=== PATIENT | female | born 1965 | race Caucasian/White ===

== ENCOUNTER 2018-02-17 21:22 | Observation (INO) | payer OTHER ==
[2018-02-17 21:29] VITALS: BMI 27.6
[2018-02-17] MEDS ORDERED: ASPIRIN 325 MG TABLET PO ONE (22:28)
[2018-02-17] MEDS ORDERED: SODIUM CHLORIDE 500 ML IV STA (22:28)
--- NOTE | 2018-02-17 22:36 | PDOC ---
History of Present Illness - General History Source: Patient Exam Limitations: No Limitations <Candy House - Last Filed: 02/18/18 01:15> <Markos Rae - Last Filed: 02/18/18 02:04> - General Chief Complaint: Chest Pain Stated Complaint: CHEST PAIN Time Seen by Provider: 02/17/18 21:47 - History of Present Illness Initial Comments: This is a 52 YOM with h/o HLD and venous reflux in her legs (based on US from 2016) who p/w left-sided sharp chest pain worsening with deep breathing and radiating straight to her back and also down her left arm. The pain started yesterday early this morning at about 2 am, lasted about 45 minutes, and resolved with 325 of aspirin which the patient took. The pain recurred today just [employer] and has been persistent since that time, associated with SOB, headache , mild lightheadedness, and mild nausea. She has never had this pain before in her life. She notes recent increased swelling in both legs and ankles, with left worse than right, and mild left calf pain. She additionally notes about two weeks of intermittent rapid palpitations. She denies LOC, fever, chills, vomiting, diarrhea, constipation, abdominal pain, or other symptoms. (Candy House) Past History - Past Medical History Asthma: Yes CVA: No COPD: No DVT: No - Immunization History Immunization Up to Date: Yes - Suicide/Smoking/Psychosocial Hx Smoking History: Never smoked Have you smoked in the past 12 months: No Information on smoking cessation initiated: No Hx Alcohol Use: No Drug/Substance Use Hx: No <Candy House - Last Filed: 02/18/18 01:15> <Markos Rae - Last Filed: 02/18/18 02:04> - Past Medical History Allergies/Adverse Reactions: Allergies Allergy/AdvReac Type Severity Reaction Status Date / Time Penicillins Allergy Verified 02/17/18 21:26 Home Medications: Ambulatory Orders Cholecalciferol (Vitamin D3) [Vitamin D3 -] 400 unit PO DAILY 02/17/18 Ferrous Sulfate [Iron] 325 mg PO DAILY 02/17/18 Vitamin A 0 unit PO DAILY 02/17/18 Vitamin E 0 unit PO DAILY 02/17/18 Review of Systems - Review of Systems Able to Perform ROS?: Yes Constitutional: No: Chills, Fever, Unexplained wgt Loss HEENTM: No: Nose Congestion, Throat Pain Respiratory: Yes: Shortness of Breath. No: Cough Cardiac (ROS): Yes: Chest Pain, Edema, Lightheadedness, Palpitations. No: Syncope ABD/GI: Yes: Nausea. No: Constipated, Diarrhea, Vomiting : No: Burning, Dysuria Musculoskeletal: No: Back Pain, Neck Pain Integumentary: No: Bruising, Rash Neurological: No: Headache, Numbness, Tingling, Weakness Endocrine: No: Unexplained Weight Gain, Unexplained Weight Loss <House,Candy - Last Filed: 02/18/18 01:15> - Vital Signs Last Vital Signs Temp Pulse Resp BP Pulse Ox 98.3 F 88 18 123/71 97 02/17/18 21:27 02/17/18 21:27 02/17/18 21:27 02/17/18 21:27 02/17/18 21:27 Heart Score/ECG Review - History History: Moderately suspicious - Electrocardiogram EKG: Non specific repolarization disturbance - Age Age: 45-65 - Risk Factors Risk Factors Heart Score: Yes Hx Hypercholesterolemia Based on the list above the patient has:: 1-2 risk factors - Troponin Troponin: </= normal limit - Score Heart Score - Total: 4 <LacyCandy - Last Filed: 02/18/18 01:15> <Markos Rae - Last Filed: 02/18/18 02:04> #1 PERC rule cannot be applied to r/o PE because the patient is 52 yo. (Candy House ) ED Treatment Course - LABORATORY CBC & Chemistry Diagram: 02/17/18 22:00 02/17/18 22:00 <LacyCandy - Last Filed: 02/18/18 01:15> - LABORATORY CBC & Chemistry Diagram: 02/17/18 22:00 02/17/18 22:00 <Markos Rae - Last Filed: 02/18/18 02:04> - ADDITIONAL ORDERS Additional order review: Laboratory Results 02/17/18 02/17/18 22:00 22:00 PT with INR 12.40 INR 1.10 Sodium 140 Potassium 4.0 Chloride 105 Carbon Dioxide 24 Anion Gap 11 BUN 19 H Creatinine 1.1 H Creat Clearance w eGFR 52.58 Random Glucose 87 Calcium 8.6 Magnesium 1.8 Total Bilirubin 0.3 AST 25 ALT 23 Alkaline Phosphatase 72 Creatine Kinase 119 Troponin I < 0.02 Total Protein 7.2 Albumin 3.7 02/17/18 22:00 RBC 3.68 MCV 93.7 MCHC 35.1 RDW 15.1 MPV 9.5 Neutrophils % 46.8 Lymphocytes % 40.7 H Monocytes % 7.0 Eosinophils % 4.5 Basophils % 1.0 - Medications Given in the ED: ED Medications Discontinued Medications Generic Name Dose Route Start Last Admin Trade Name Groverq PRN Reason Stop Dose Admin Aspirin 325 mg 02/17/18 22:28 02/17/18 23:04 Asa - PO 02/17/18 22:29 325 mg ONCE ONE Administration Sodium Chloride 500 mls @ 500 mls/hr 02/17/18 22:28 02/17/18 23:04 Normal Saline - IV 02/17/18 23:27 500 mls/hr ASDIR STA Administration Nitroglycerin 1 inch 02/17/18 23:01 02/17/18 23:13 Nitro-Bid 2% Paste - TD 02/17/18 23:02 1 inch ONCE ONE Administration Medical Decision Making <Candy House - Last Filed: 02/18/18 01:15> <Markos Rae - Last Filed: 02/18/18 02:04> - Medical Decision Making 52 YOF patient p/w chest pain, SOB, lightheadedness, nausea, palpitations. Initial Vital Signs Temp Pulse Resp BP Pulse Ox 98.3 F 88 18 123/71 97 02/17/18 21:27 02/17/18 21:27 02/17/18 21:27 02/17/18 21:27 02/17/18 21:27 Exam: Normal heart and lung exams, bilateral nonpitting edema LE, mild ttp left mid-calf, no palpable cords. DDX IBNLT: PE, ACS, pericarditis, tamponade, aortic dissection, AAA, PTX, esophageal tear, esophagitis (e.g. pill, infectious), esophageal stricture, esophageal FB, gastritis, PUD, pancreatitis, cholecystitis, cholangitis, colitis , bowel perforation, PNA/bronchitis, musculoskeletal, etc. W/U ordered: CBCD CMP Mg Phos Lipase Troponin CK CKMB Coags T&S UA UCx EKG CXR. TX ordered: monitor, ASA 324, NTG. Unlikely pericarditis as pain is not relieved sitting forward, patient afebrile , no friction rub. Unlikely tamponade as patient has no triad of hypotension/JVD/muffled heart sounds. Unlikely AD as no ripping/tearing sensation, BP not concerningly elevated, radial pulses equal bilaterally. Unlikely AAA as pt has no midline pulsatile mass or h/o AAA/AD, denies HTN or connective tissue d/o. Unlikely pneumothorax as VS are wnl, patient has no recent h/o trauma or falls, not SOB. Unlikely esophageal tear (Yamileth-Lopez/Boerhaave) as pt denies recent EtOH or heavy vomiting/wretching. Unlikely esophagitis as pt denies heavy NSAIDs or pills soon before onset, no immunocompromise/steroids. Unlikely esophageal stricture as the patient is still able to keep down solids per usual, no prior hx. Unlikely esophageal FB as patient denies having eaten just prior to onset, no stuck sensation. Unlikely gastritis as pt denies h/o significant GERD, no overuse of EtOH. Unlikely PUD as pt does not report relief of pain ~2 hours postprandially or with antacids. Unlikely pancreatitis as pt denies EtOH use, h/o gallstones, no known hypercalcemia. Unlikely cholecystitis as no postprandial worsening. Unlikely cholangitis as pt has no fever, clinical jaundice, RUQ pain; also no hypotension or AMS. Unlikely colitis as clinically pts abdomen is not distended/no ascites, no fever, other VS wnl. Unlikely bowel perforation as patient does not appear to have acute abdomen, no peritoneal signs. Unlikely PNA/bronchitis as patient has no SOB, cough, fever, known exposures, h/ o recurrent PNA, etc. EKG: NSR, t-wave flattening in III and V2 and V4, T-wave inversions in V3. CXR: NADP Laboratory Tests 02/17/18 02/17/18 02/17/18 22:00 22:00 22:00 WBC 5.6 RBC 3.68 Hgb 12.1 Hct 34.5 MCV 93.7 MCH 32.9 MCHC 35.1 RDW 15.1 Plt Count 253 MPV 9.5 Neutrophils % 46.8 Lymphocytes % 40.7 H Monocytes % 7.0 Eosinophils % 4.5 Basophils % 1.0 PT with INR 12.40 INR 1.10 Sodium 140 Potassium 4.0 Chloride 105 Carbon Dioxide 24 Anion Gap 11 BUN 19 H Creatinine 1.1 H Creat Clearance w eGFR 52.58 Random Glucose 87 Calcium 8.6 Magnesium 1.8 Total Bilirubin 0.3 AST 25 ALT 23 Alkaline Phosphatase 72 Creatine Kinase 119 Troponin I < 0.02 Total Protein 7.2 Albumin 3.7 Repeat VS: Reassessment: PERC rule cannot be applied to r/o PE because the patient is 52 yo. HEART score is 4. 02/18/18 01:15 (Candy House) *DC/Admit/Observation/Transfer <Candy House - Last Filed: 02/18/18 01:15> - Discharge Dispostion Admit: Yes <Markos Rea - Last Filed: 02/18/18 02:04> Diagnosis at time of Disposition: Chest pain Qualifiers: Chest pain type: unspecified Qualified Code(s): R07.9 - Chest pain, unspecified - Discharge Dispostion Condition at time of disposition: Fair
[2018-02-17 22:55] LABS: EOS % 4.5 % (0-4.5); HEMATOCRIT 34.5 % (32.4-45.2); HEMOGLOBIN 12.1 GM/dL (10.7-15.3); LYMPH % 40.7 % (8-40); MCH 32.9 pg (25.7-33.7); MCHC 35.1 g/dl (32.0-36.0); MEAN CELL VOLUME 93.7 fl (80-96); MEAN PLT VOLUME 9.5 fl (7.5-11.1); NEUT % 46.8 % (42.8-82.8); PLATELET COUNT 253 K/MM3 (134-434); RBC 3.68 M/mm3 (3.60-5.2); RDW 15.1 % (11.6-15.6); WHITE BLOOD COUNT 5.6 K/mm3 (4.0-10.0)
[2018-02-17] MEDS ORDERED: ASPIRIN 325 MG ENTERIC COATED TABLET (FP) ONE (22:57)
[2018-02-17] MEDS ORDERED: NITROGLYCERIN 2% OINTMENT - 1GM PACKET TD ONE ×2 (23:01→23:09)
[2018-02-17 23:07] LABS: INR 1.1 (0.82-1.09); PROTHROMBIN TIME (PATIENT) 12.4 SEC (9.7-13.0)
[2018-02-17 23:17] LABS: ALBUMIN 3.7 g/dl (3.4-5.0); ANION GAP 11 (8-16); BILIRUBIN,TOTAL 0.3 mg/dL (0.2-1.0); BLOOD UREA NITROGEN 19 mg/dL (7-18); CALCIUM 8.6 mg/dL (8.5-10.1); CHLORIDE 105 mmol/L (98-107); CO2 24 mmol/L (21-32); CREATININE 1.1 mg/dL (0.55-1.02); GLUCOSE,RANDOM 87 mg/dL (74-106); SGPT/ALT 23 U/L (12-78); SODIUM 140 mmol/L (136-145); TOT PROT 7.2 g/dl (6.4-8.2)
[2018-02-17 23:19] LABS: ALK PHOS 72 U/L (45-117)
[2018-02-17 23:21] LABS: MAGNESIUM 1.8 mg/dL (1.8-2.4); SGOT/AST 25 U/L (15-37)
--- NOTE | 2018-02-18 00:19 | PDOC ---
Attending Attestation - HPI HPI: 02/18/18 00:24 The patient is a 52 year old female with significant past medical history of HLD , asthma, and venous reflux in legs(diagnosed in 2016) who presents to the ED complaining of left-sided chest pain. The patient reports left-sided chest pain began at 2 am for a duration of 45 minutes. She describes the pain radiates from her chest to her back and down her left arm, and is exacerbated with inspiration. She reports another episode with persistent pain which prompted her visit to the ED. She reports associated symptoms of dyspnea, headache, lightheadedness, nausea, and bilateral edema in legs and ankles. The patient denies fever, chills, constipation, vomiting, diarrhea, abdominal pain, loss of consciousness, and immobilization. <Dave Davenport - Last Filed: 02/18/18 00:42> - Resident Resident Name: Candy House - ED Attending Attestation I have performed the following: I have examined & evaluated the patient, The case was reviewed & discussed with the resident, I agree w/resident's findings & plan, Exceptions are as noted - Physicial Exam PE: 02/18/18 01:28 Patient is awake and alert, nontoxic-appearing, afebrile Normocephalic, atraumatic PERRLA, EOMI CTA RRR No lower extremity edema bilaterally - Medical Decision Making 02/18/18 01:28 Patient is a 52-year-old female with history of hypercholesterolemia who presents with atraumatic chest and pleuritic subscapular pain on the left for the past 24 hours. Patient's EKG reveals inverted to flat T waves in V1 through V3 which appear new when compared to an EKG performed in 2008. Patient was noted to be moderate risk for PE by Wells criteria (score of 3) and a CTA of chest was obtained which showed no evidence of PE or any other acute intrathoracic pathology. First set of cardiac enzymes is within normal limit. Patient has received aspirin and transdermal nitroglycerin. Patient's heart score is noted to be 4. Patient will be placed in observation for serial cardiac enzymes and cardiology evaluation. 02/18/18 02:02 ct chest shows no acute pathology. heart score 4. will place in observ. <Markos Rae - Last Filed: 02/18/18 02:03> Heart Score/ECG Review - ECG Impressions Comment:: Impression: Normal sinus rhythm. Nonspecific ST and T wave abnormality. Abnormal ECG. Vent. rate: 72 bpm VT interval: 164 ms QRS duration: 80 ms QT/QTc: 406/444 ms PRT axes: 57 14 36 <Dave Davenport - Last Filed: 02/18/18 00:42> Attestations - Attestations Documentation prepared by Dave Davenport, acting as medical esthetician for Markos Rae MD. <Dave Davenport - Last Filed: 02/18/18 00:42>
[2018-02-18] MEDS ORDERED: ACETAMINOPHEN 325 MG TABLET (FP) ONE (01:56)
[2018-02-18] MEDS ORDERED: ACETAMINOPHEN 500 MG TABLET (FP) PO ONE (02:02)
--- NOTE | 2018-02-18 03:10 | PN ---
Teaching Attending Note Name of Resident: Gill Alejandro ATTENDING PHYSICIAN STATEMENT I saw and evaluated the patient. I reviewed the resident's note and discussed the case with the resident. I agree with the resident's findings and plan as documented. SUBJECTIVE: 52 y/o F c/o Left sided chest pain with radiation to left arm, pmh of migraine, fibroids, fibromyalgia and DLP OBJECTIVE: GEN: Resting comfortably, intermitent cough HEENT: PERRLA, MMM Lungs: CTA CVS: RRR, S1, S2 no M/G/R Abd: Soft , NT, ND, BS+ Ext: nl ROM, no edema CBCD WBC 5.6 K/mm3 (4.0-10.0) 02/17/18 22:00 RBC 3.68 M/mm3 (3.60-5.2) 02/17/18 22:00 Hgb 12.1 GM/dL (10.7-15.3) 02/17/18 22:00 Hct 34.5 % (32.4-45.2) 02/17/18 22:00 MCV 93.7 fl (80-96) 02/17/18 22:00 MCHC 35.1 g/dl (32.0-36.0) 02/17/18 22:00 RDW 15.1 % (11.6-15.6) 02/17/18 22:00 Plt Count 253 K/MM3 (134-434) 02/17/18 22:00 MPV 9.5 fl (7.5-11.1) 02/17/18 22:00 CMP Sodium 140 mmol/L (136-145) 02/17/18 22:00 Potassium 4.0 mmol/L (3.5-5.1) 02/17/18 22:00 Chloride 105 mmol/L (98-107) 02/17/18 22:00 Carbon Dioxide 24 mmol/L (21-32) 02/17/18 22:00 Anion Gap 11 (8-16) 02/17/18 22:00 BUN 19 mg/dL (7-18) H 02/17/18 22:00 Creatinine 1.1 mg/dL (0.55-1.02) H 02/17/18 22:00 Creat Clearance w eGFR 52.58 (>60) 02/17/18 22:00 Random Glucose 87 mg/dL (74-106) 02/17/18 22:00 Calcium 8.6 mg/dL (8.5-10.1) 02/17/18 22:00 Total Bilirubin 0.3 mg/dL (0.2-1.0) 02/17/18 22:00 AST 25 U/L (15-37) 02/17/18 22:00 ALT 23 U/L (12-78) 02/17/18 22:00 Alkaline Phosphatase 72 U/L (45-117) 02/17/18 22:00 Total Protein 7.2 g/dl (6.4-8.2) 02/17/18 22:00 Albumin 3.7 g/dl (3.4-5.0) 02/17/18 22:00 CARDIAC ENZYMES Creatine Kinase 119 IU/L (26-192) 02/17/18 22:00 Troponin I < 0.02 ng/ml (0.00-0.05) 02/17/18 22:00 ASSESSMENT AND PLAN: R/O ACS- trend troponins, tsh, A1c, nitro SL prn, ASA 325 mg daily. Migraine- tylenol prn. DVT prophylaxis. Cardiology consult and consider for stress test as outpatient.
--- NOTE | 2018-02-18 03:28 | HP ---
CHIEF COMPLAINT: chest pain PCP: Dr. Toño Becerra HISTORY OF PRESENT ILLNESS: 52yo woman with PMH of migraines, uterine fibroids, fibromyalgia, HLD (not on statin), chronic bilateral LE venous reflux who presents with L sided CP radiating to L arm that began yesterday evening. Patient is unable to describe nature of CP, but denies a stabbing or squeezing character; exacerbated with inspiration. No prior episodes of similar pain, but does endorse occasional chest pain when she "has gas". 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 She reports vigorous aerobic exercises on Monday and (standing bike), and reports no CP or sob during or after the exercises. She does endorse feeling "wiped out" the day after exercising. Endorses intermittent chest palpitation for the past week. Denies diarrhea, fever, chills, abdominal pain. No family or sick contacts. Prior to coming to the ED, the patient took ASA 325mg PO. In the ED, pt's VS were 130/80, HR 90, RR 19, pSaO2 98%. ER course was notable for: (1) Given ASA 325mg PO (2) CTA neg for PE (3) EKG: NSR, rate 72, inverted to flat T waves V1-V3 (change from prior 2008); QTc 444ms (4) 1st Trop-I neg (5) CXR: no acute pathology PAST MEDICAL HISTORY: HLD - patient refused to start statin due to concern for medication side effects Fibroids - last saw aba therapist in October; last period was in October, no spotting since then Fibromyalgia - reports w/u and dx by PCP Dr. Becerra ~3years ago, not on any medications Migraines - recently saw Neurologist as OP, started on amitriptyline, but did not tolerate medication PAST SURGICAL HISTORY: Social History: Smoking: never Alcohol: rare Drugs: denies Family History: Dad - DM and CVA, no family h/o [place] or sudden unexplained Allergies: Penicillins Allergy (Verified 02/17/18 21:26) HOME MEDICATIONS: Home Medications Medication Instructions Recorded Cholecalciferol (Vitamin D3) 400 unit PO DAILY 02/17/18 [Vitamin D3 -] Ferrous Sulfate [Iron] 325 mg PO DAILY 02/17/18 Vitamin A 0 unit PO DAILY 02/17/18 Vitamin E 0 unit PO DAILY 02/17/18 REVIEW OF SYSTEMS CONSTITUTIONAL: Absent: fever, chills, diaphoresis, generalized weakness, malaise, loss of appetite, weight change HEENT: Absent: rhinorrhea, nasal congestion, throat pain, throat swelling, difficulty swallowing, mouth swelling, ear pain, eye pain, visual changes CARDIOVASCULAR: +chest pain, palpitations, lightheadedness Absent: syncope, irregular heart rate, peripheral edema RESPIRATORY: Absent: cough, shortness of breath, dyspnea with exertion, orthopnea, wheezing, stridor, hemoptysis GASTROINTESTINAL: nausea Absent: abdominal pain, abdominal distension, nausea, diarrhea, constipation, melena, hematochezia GENITOURINARY: Absent: dysuria, frequency, urgency, hesitancy, hematuria, flank pain, genital pain MUSCULOSKELETAL: Absent: myalgia, arthralgia, joint swelling, back pain, neck pain SKIN: Absent: rash, itching, pallor HEMATOLOGIC/IMMUNOLOGIC: Absent: easy bleeding, easy bruising, lymphadenopathy, frequent infections ENDOCRINE: Absent: unexplained weight gain, unexplained weight loss, heat intolerance, cold intolerance NEUROLOGIC: +migraine Absent: focal weakness or paresthesias, dizziness, unsteady gait, seizure, mental status changes, bladder or bowel incontinence PSYCHIATRIC: Absent: anxiety, depression, suicidal or homicidal ideation, hallucinations. PHYSICAL EXAMINATION Vital Signs - 24 hr 02/17/18 02/18/18 02/18/18 21:27 01:00 02:33 Temperature 98.3 F Pulse Rate 88 Pulse Rate [ 90 Left Radial] Respiratory 18 18 Rate Blood Pressure 123/71 Blood Pressure 130/80 [Left Arm] O2 Sat by Pulse 97 98 98 Oximetry (%) GENERAL: aaox3, nad HEENT: PERRLA, sclera anicteric, conjunctiva clear, mmm LUNGS: CTAB HEART: rrr, normal s1/s2, no m/r/g ABDOMEN: Soft, ntnd, +positive bowel sounds MUSCULOSKELETAL: Normal range of motion at all joints. No bony deformities or tenderness. no chest wall ttp LOWER EXTREMITIES: 2+ DP pulses, no pitting edema, mild ttp around lateral malleoli CBC, BMP 02/17/18 22:00 02/17/18 22:00 Hepatic Panel Total Bilirubin 0.3 mg/dL (0.2-1.0) 02/17/18 22:00 AST 25 U/L (15-37) 02/17/18 22:00 ALT 23 U/L (12-78) 02/17/18 22:00 Alkaline Phosphatase 72 U/L (45-117) 02/17/18 22:00 Albumin 3.7 g/dl (3.4-5.0) 02/17/18 22:00 Troponin, BNP 02/17/18 02/18/18 22:00 03:30 Troponin I < 0.02 < 0.02 CTA, preliminary report: No PE or dissection. Heart normal size. Trachea and bronchi are patent, no pleural or pericardial effusion, Lungs are clear, Old L rib fractures are noted; no acute fractures ASSESSMENT/PLAN: 52yo woman with PMH of HLD (not on statin), migraines, fibroids, fibromyalgia who presents with acute onset L sided CP radiated to L arm [id number]. #chest pain, ACS r/o, Heart Score 4 -Trend Trops q6h -f/u TSH -f/u A1C -Cardiology consulted -nitropaste PRN for pain -Tylenol 650mg Q4H PRN for pain #elevated Cr, 1.2 on admission, baseline unknown -Trend #h/o migraine -feels MCKEON may be starting; offered medication, but patient wishes to hold off for now #FEN PO intake lytes wnl Regular diet #PPX DVT - EAM #DISPO - tele obs d/w Dr. Camilo Alejandro MD PGY1 - Internal Medicine Visit type - Emergency Visit Emergency Visit: Yes ED Registration Date: 02/18/18 Care time: The patient presented to the Emergency Department on the above date and was hospitalized for further evaluation of their emergent condition. - New Patient This patient is new to me today: Yes Date on this admission: 03/04/18 - Critical Care Critical Care patient: No Hospitalist Screening - Colonoscopy Questionnaire Colonoscopy Questionnaire: Colonoscopy Questionnaire - Patient: 50 - 75 years old and never had a screening colonoscopy: Unknown History of colon or rectal polyps, or CA: Unknown History of IBD, Crohn's disease or UC: Unknown History of abdominal radiation therapy as a child: Unknown - Relative: 1 with colon or rectal CA, or polyps at age 60 or younger: Unknown Colon or rectal CA diagnosed at age 45 or younger: Unknown Multiple relatives with colon or rectal CA: Unknown - Outcome: Screening Result: Negative Screen
[2018-02-18] MEDS ORDERED: ACETAMINOPHEN 325 MG TABLET (FP) PO PRN ×2 (05:10→15:26)
[2018-02-18] MEDS ORDERED: NITROGLYCERIN 2% OINTMENT - 1GM PACKET TD PRN (05:11)
--- NOTE | 2018-02-18 09:18 | EKG ---
Test Reason : Blood Pressure : / mmHG Vent. Rate : 072 BPM Atrial Rate : 072 BPM P-R Int : 164 ms QRS Dur : 080 ms QT Int : 406 ms P-R-T Axes : 057 014 036 degrees QTc Int : 444 ms NORMAL SINUS RHYTHM NONSPECIFIC ST AND T WAVE ABNORMALITY ABNORMAL ECG WHEN COMPARED WITH ECG OF 04-JAN-2009 07:46, T WAVE INVERSION NOW EVIDENT IN ANTERIOR LEADS Confirmed by GRACE VALLE, PAM ([id number]) on 02/18/2018 9:17:47 AM Referred By: Confirmed By:PAM EDWARDS MD
--- NOTE | 2018-02-18 10:18 | CON.CARD ---
Cardiology Consult (text) - Consultation Consultation Note: cc: cp/sob hpi: 52 f hx hld, migraines here with cp/sob. Yesterday at rest and felt sob and sharp central cp that was worse with deep breaths. No palps, dizzy, loc, pnd, orthopnea, le edema. No hx hrt dz. No recent cardiac testing. Today main complaint is headache. pmh: per hpi psh: nc social: no tob fam: no premature cad or scd ros: per hpi; no nvd, fever, cough, vison changes, muscel pains, hematuria, dysuria, gib meds: Home Medications Medication Instructions Recorded Cholecalciferol (Vitamin D3) 400 unit PO DAILY 02/17/18 [Vitamin D3 -] Ferrous Sulfate [Iron] 325 mg PO DAILY 02/17/18 Vitamin A 0 unit PO DAILY 02/17/18 Vitamin E 0 unit PO DAILY 02/17/18 Current Medications Generic Name Dose Route Start Last Admin Trade Name Freq PRN Reason Stop Dose Admin Acetaminophen 650 mg 02/18/18 05:10 02/18/18 08:51 Tylenol - PO 650 mg Q4H PRN Administration FOR CHEST PAIN Nitroglycerin 1 inch 02/18/18 05:11 Nitro-Bid 2% Paste - TD 02/19/18 05:10 ONCE PRN FOR CHEST PAIN pe: Vital Signs Period Temp Pulse Resp BP Sys/Stock Pulse Ox Last 24 Hr 98.1 F-98.3 F 79-90 - 123-130/70-80 97-98 nad no jvd rrr s1s2 no mrg cta b nl eff aao3 no le e/c/c abd nt nd pos bs no jaundice diaphoresis pos dp pt no carotid bruits Laboratory Last Values WBC 5.6 K/mm3 (4.0-10.0) 02/17/18 22:00 RBC 3.68 M/mm3 (3.60-5.2) 02/17/18 22:00 Hgb 12.1 GM/dL (10.7-15.3) 02/17/18 22:00 Hct 34.5 % (32.4-45.2) 02/17/18 22:00 MCV 93.7 fl (80-96) 02/17/18 22:00 MCH 32.9 pg (25.7-33.7) 02/17/18 22:00 MCHC 35.1 g/dl (32.0-36.0) 02/17/18 22:00 RDW 15.1 % (11.6-15.6) 02/17/18 22:00 Plt Count 253 K/MM3 (134-434) 02/17/18 22:00 MPV 9.5 fl (7.5-11.1) 02/17/18 22:00 Neutrophils % 46.8 % (42.8-82.8) 02/17/18 22:00 Lymphocytes % 40.7 % (8-40) H 02/17/18 22:00 Monocytes % 7.0 % (3.8-10.2) 02/17/18:00 Eosinophils % 4.5 % (0-4.5) 02/17/18:00 Basophils % 1.0 % (0-2.0) 02/17/18 22:00 PT with INR 12.40 SEC (9.7-13.0) 02/17/18 22:00 INR 1.10 (0.82-1.09) 02/17/18 22:00 Sodium 140 mmol/L (136-145) 02/17/18 22:00 Potassium 4.0 mmol/L (3.5-5.1) 02/17/18 22:00 Chloride 105 mmol/L (98-107) 02/17/18 22:00 Carbon Dioxide 24 mmol/L (21-32) 02/17/18 22:00 Anion Gap 11 (8-16) 02/17/18 22:00 BUN 19 mg/dL (7-18) H 02/17/18 22:00 Creatinine 1.1 mg/dL (0.55-1.02) H 02/17/18 22:00 Creat Clearance w eGFR 52.58 (>60) 02/17/18 22:00 Random Glucose 87 mg/dL (74-106) 02/17/18 22:00 Calcium 8.6 mg/dL (8.5-10.1) 02/17/18 22:00 Magnesium 1.8 mg/dL (1.8-2.4) 02/17/18 22:00 Total Bilirubin 0.3 mg/dL (0.2-1.0) 02/17/18 22:00 AST 25 U/L (15-37) 02/17/18 22:00 ALT 23 U/L (12-78) 02/17/18 22:00 Alkaline Phosphatase 72 U/L (45-117) 02/17/18 22:00 Creatine Kinase 119 IU/L (26-192) 02/17/18 22:00 Troponin I < 0.02 ng/ml (0.00-0.05) 02/18/18 03:30 Total Protein 7.2 g/dl (6.4-8.2) 02/17/18 22:00 Albumin 3.7 g/dl (3.4-5.0) 02/17/18 22:00 tele: sr ecg: sr,nl intervals, no st changes, nonspec twi changes cta chest: no pe, no chf a/p: 52 f hx hld, migraines here with cp/sob. cp, sob: -atypical sxs, pleuritic cp -no signs acs -no pe, chf -will check echo and stress echo tomorrow hld: -stable, diet control
[2018-02-18 10:39] LABS: HEMATOCRIT 35.4 % (32.4-45.2); MCH 31.8 pg (25.7-33.7); MCHC 34.1 g/dl (32.0-36.0); MEAN CELL VOLUME 93.2 fl (80-96); MEAN PLT VOLUME 8.6 fl (7.5-11.1); PLATELET COUNT 249 K/MM3 (134-434); RBC 3.79 M/mm3 (3.60-5.2); RDW 15.3 % (11.6-15.6); WHITE BLOOD COUNT 5.2 K/mm3 (4.0-10.0)
[2018-02-18 11:13] LABS: ANION GAP 1 (8-16); BLOOD UREA NITROGEN 17 mg/dL (7-18); CALCIUM 8.9 mg/dL (8.5-10.1); CHLORIDE 110 mmol/L (98-107); CO2 30 mmol/L (21-32); CREATININE 0.8 mg/dL (0.55-1.02); GLUCOSE,RANDOM 82 mg/dL (74-106); POTASSIUM 4.2 mmol/L (3.5-5.1); SODIUM 141 mmol/L (136-145)
--- NOTE | 2018-02-18 15:31 | PN ---
Teaching Attending Note Name of Resident: Beena Molina SUBJECTIVE: patient seen and examined. Reports headache, also intermittent 'fluttering'. Currently resolved. No dyspnea. Also recently started exercising and noted getting short of breath and fatigued after the same. OBJECTIVE: Vital Signs Period Temp Pulse Resp BP Sys/Stock Pulse Ox Last 24 Hr 98.1 F-98.3 F 68-90 18-20 123-130/70-80 97-98 Intake & Output 02/15/18 02/16/18 02/17/18 02/18/18 23:59 23:59 23:59 23:59 Intake Total 100 Balance 100 Weight 166 lb 166 lb General: sitting in bed in no acute distress Chest: CTAB, no rales or wheezing abdomen:soft, obese, NT extremities: no edema Home Medication List Medication Instructions Recorded Confirmed Type Cholecalciferol (Vitamin D3) 400 unit PO DAILY 02/17/18 02/17/18 History [Vitamin D3 -] Ferrous Sulfate [Iron] 325 mg PO DAILY 02/17/18 02/17/18 History Vitamin A 0 unit PO DAILY 02/17/18 02/17/18 History Vitamin E 0 unit PO DAILY 02/17/18 02/17/18 History Active Medications Generic Name Dose Route Start Last Admin Trade Name Freq PRN Reason Stop Dose Admin Acetaminophen 650 mg 02/18/18 15:26 Tylenol - PO Q6H PRN FOR CHEST PAIN Acetaminophen/Butalbital/Caffeine 1 tablet 02/18/18 15:25 Fioricet - PO Q6H PRN HEADACHE Nitroglycerin 1 inch 02/18/18 05:11 Nitro-Bid 2% Paste - TD 02/19/18 05:10 ONCE PRN FOR CHEST PAIN Laboratory Results - last 24 hr 02/17/18 02/17/18 02/17/18 22:00 22:00 22:00 WBC 5.6 RBC 3.68 Hgb 12.1 Hct 34.5 MCV 93.7 MCH 32.9 MCHC 35.1 RDW 15.1 Plt Count 253 MPV 9.5 Neutrophils % 46.8 Lymphocytes % 40.7 H Monocytes % 7.0 Eosinophils % 4.5 Basophils % 1.0 PT with INR 12.40 INR 1.10 Sodium 140 Potassium 4.0 Chloride 105 Carbon Dioxide 24 Anion Gap 11 BUN 19 H Creatinine 1.1 H Creat Clearance w eGFR 52.58 Random Glucose 87 Calcium 8.6 Magnesium 1.8 Total Bilirubin 0.3 AST 25 ALT 23 Alkaline Phosphatase 72 Creatine Kinase 119 Troponin I < 0.02 Total Protein 7.2 Albumin 3.7 TSH 02/18/18 02/18/18 02/18/18 03:30 10:19 10:19 WBC 5.2 RBC 3.79 Hgb 12.0 Hct 35.4 MCV 93.2 MCH 31.8 MCHC 34.1 RDW 15.3 Plt Count 249 MPV 8.6 Neutrophils % Lymphocytes % Monocytes % Eosinophils % Basophils % PT with INR INR Sodium 141 Potassium 4.2 Chloride 110 H Carbon Dioxide 30 Anion Gap 1 L BUN 17 Creatinine 0.8 Creat Clearance w eGFR Random Glucose 82 Calcium 8.9 Magnesium Total Bilirubin AST ALT Alkaline Phosphatase Creatine Kinase Troponin I < 0.02 < 0.02 Total Protein Albumin TSH 0.37 EKG reviewed T inversion in V1-V3 ASSESSMENT AND PLAN: 52 yof with PMHx of migraine, fibroids, fibromyalgia, HLD not on statin, Bilateral LE venos stasisadmitted with chest pain. -Chest pain, with anterior leads EKG changes -Migraine headaches -Fibromyalgia -HLD, not on statin Plan: No events on telemetry. ACS ruled out. Cardiology input noted. Symptoms post exercise. 2D echo/Stress echo. Start fioricet prn. dispo home in 24 hours if cardiac w/u non concerning and no new events. Plan discussed with patient in detail, all questions answered.
[2018-02-18] MEDS: ACETAMINOPHEN/CAFFEINE/BUTALBITAL 1 TAB PO PRN (17:11)
--- NOTE | 2018-02-19 08:12 | PN ---
Teaching Attending Note Name of Resident: Gill Alejandro ATTENDING PHYSICIAN STATEMENT I saw and evaluated the patient. I reviewed the resident's note and discussed the case with the resident. I agree with the resident's findings and plan as documented with exceptions below. SUBJECTIVE: Patient seen and examined. no complaints. OBJECTIVE: Vital Signs Period Temp Pulse Resp BP Sys/Stock Pulse Ox Last 24 Hr 97.4 F-98.5 F 66-73 18-20 94-127/49-77 98-99 Intake & Output 02/16/18 02/17/18 02/18/18 02/19/18 23:59 23:59 23:59 23:59 Intake Total 470 Balance 470 Weight 166 lb 166 lb General: sitting in wheelchair in no acute distress Home Medication List Medication Instructions Recorded Confirmed Type Cholecalciferol (Vitamin D3) 400 unit PO DAILY 02/17/18 02/17/18 History [Vitamin D3 -] Ferrous Sulfate [Iron] 325 mg PO DAILY 02/17/18 02/17/18 History Vitamin A 0 unit PO DAILY 02/17/18 02/17/18 History Vitamin E 0 unit PO DAILY 02/17/18 02/17/18 History Active Medications Generic Name Dose Route Start Last Admin Trade Name Freq PRN Reason Stop Dose Admin Acetaminophen 650 mg 02/18/18 15:26 Tylenol - PO Q6H PRN FOR CHEST PAIN Acetaminophen/Butalbital/Caffeine 1 tablet 02/18/18 15:25 02/18/18 17:11 Fioricet - PO 1 tablet Q6H PRN Administration HEADACHE Aspirin 81 mg 02/19/18 10:00 Asa - PO DAILY HEBERT ASSESSMENT AND PLAN: 52 yof with PMHx of migraine, fibroids, fibromyalgia, HLD not on statin, Bilateral LE venos stasisadmitted with chest pain. -Chest pain, with anterior leads EKG changes -Migraine headaches -Fibromyalgia -HLD, not on statin Plan: No events on telemetry. ACS ruled out. Cardiology input noted. 2D echo noted. Stress echo prelim read as discussed with Dr. Nagi giles, outpatient follow up dispo home today with outpatient cardiology follow up. Plan discussed with patient in detail, all questions answered.
--- NOTE | 2018-02-19 08:54 | PN ---
Physical Exam: SUBJECTIVE: Patient seen and examined OBJECTIVE: Vital Signs Period Temp Pulse Resp BP Sys/Stock Pulse Ox Last 24 Hr 97.4 F-98.5 F 66-73 18-20 94-127/49-77 98-99 GENERAL: The patient is awake, alert, and fully oriented, in no acute distress. HEAD: Normal with no signs of trauma. EYES: PERRL, extraocular movements intact, sclera anicteric, conjunctiva clear. No ptosis. ENT: Ears normal, nares patent, oropharynx clear without exudates, moist mucous membranes. NECK: Trachea midline, full range of motion, supple. LUNGS: Breath sounds equal, clear to auscultation bilaterally, no wheezes, no crackles, no accessory muscle use. HEART: Regular rate and rhythm, S1, S2 without murmur, rub or gallop. ABDOMEN: Soft, nontender, nondistended, normoactive bowel sounds, no guarding, no rebound, no hepatosplenomegaly, no masses. EXTREMITIES: 2+ pulses, warm, well-perfused, no edema. NEUROLOGICAL: Cranial nerves II through XII grossly intact. Normal speech, gait not observed. PSYCH: Normal mood, normal affect. SKIN: Warm, dry, normal turgor, no rashes or lesions noted Laboratory Results - last 24 hr 02/18/18 02/18/18 10:19 10:19 WBC 5.2 RBC 3.79 Hgb 12.0 Hct 35.4 MCV 93.2 MCH 31.8 MCHC 34.1 RDW 15.3 Plt Count 249 MPV 8.6 Sodium 141 Potassium 4.2 Chloride 110 H Carbon Dioxide 30 Anion Gap 1 L BUN 17 Creatinine 0.8 Random Glucose 82 Calcium 8.9 Troponin I < 0.02 TSH 0.37 Active Medications Generic Name Dose Route Start Last Admin Trade Name Freq PRN Reason Stop Dose Admin Acetaminophen 650 mg 02/18/18 15:26 Tylenol - PO Q6H PRN FOR CHEST PAIN Acetaminophen/Butalbital/Caffeine 1 tablet 02/18/18 15:25 02/18/18 17:11 Fioricet - PO 1 tablet Q6H PRN Administration HEADACHE Aspirin 81 mg 02/19/18 10:00 Asa - PO DAILY HEBERT ASSESSMENT/PLAN:
[2018-02-19] MEDS ORDERED: ASPIRIN 81 MG CHEWABLE TABLETS PO SCH (10:00)
[2018-02-19] MEDS: ACETAMINOPHEN/CAFFEINE/BUTALBITAL 1 TAB PO PRN ×2 (10:38→17:31)
--- NOTE | 2018-02-19 16:26 | PN ---
Progress Note (short form) - Note Progress Note: cc: cp/sob S: no cp, sob, palps, dizziness. counseled her on the results of her testing. States she is also concerned about the palps she experienced prior to her episode of cp. Current Medications Acetaminophen (Tylenol -) 650 mg PO Q6H PRN PRN Reason: FOR CHEST PAIN Acetaminophen/Butalbital/Caffeine (Fioricet -) 1 tablet PO Q6H PRN PRN Reason: HEADACHE Last Admin: 02/19/18 10:38 Dose: 1 tablet Aspirin (Asa -) 81 mg PO DAILY HEBERT Last Admin: 02/19/18 09:19 Dose: 81 mg pe: Vital Signs - 24 hr 02/18/18 02/18/18 02/18/18 17:00 17:10 22:00 Temperature 98.5 F 98.0 F 97.4 F L Pulse Rate 69 69 66 Respiratory 20 20 20 Rate Blood Pressure 118/71 119/77 106/67 O2 Sat by Pulse Oximetry (%) 02/18/18 02/19/18 02/19/18 23:00 02:00 06:00 Temperature 97.8 F Pulse Rate 69 68 Respiratory 18 20 Rate Blood Pressure 114/61 94/49 O2 Sat by Pulse 99 Oximetry (%) 02/19/18 02/19/18 02/19/18 07:00 07:25 13:54 Temperature 98.4 F 98.2 F Pulse Rate 73 89 Respiratory 20 20 16 Rate Blood Pressure 108/74 119/78 O2 Sat by Pulse 99 Oximetry (%) Intake & Output 02/17/18 02/18/18 02/19/18 02/20/18 07:59 07:59 07:59 07:59 Intake Total 100 370 350 Balance 100 370 350 Weight 166 lb nad no jvd rrr s1s2 no mrg cta b nl eff aao3 no le e/c/c abd nt nd pos bs no jaundice diaphoresis pos dp pt no carotid bruits no CBC, BMP today 02/18/18 10:19 02/18/18 10:19 Laboratory Tests 02/17/18 02/18/18 02/18/18 22:00 03:30 10:19 Hemoglobin A1c % Troponin I < 0.02 < 0.02 < 0.02 TSH 0.37 02/19/18 09:10 Hemoglobin A1c % 6.6 H Troponin I TSH tele: sr/sb ecg: sr,nl intervals, no st changes, nonspec twi changes echo 01/2018 tds: nl lv/rv size/fn. 1+ mr. stress echo 01/2018: phr achieved. no sx's. no ischemic ekg changes. no inducible ischemia. cta chest: no pe, no chf a/p: 52 f hx hld, migraines here with cp/sob. cp, sob: -atypical sxs, pleuritic cp -no signs acs -no pe, chf -echo wnl. Stress echo wnl. hld: -stable, diet control palps - currently resolved. can monitor for recurrence on outpatient f/u. stable for d/c from CV perspective. f/u with cardiology as outpatient.
[2018-02-19 17:03] VITALS: BP 114/76; PULSE 80; TEMP 98
--- NOTE | 2018-02-19 18:22 | DS ---
Physical Exam: SUBJECTIVE: Patient seen and examined. Offers no complaints. Denies CP, chest tightness, chest discomfort, sob. OBJECTIVE: Vital Signs Period Temp Pulse Resp BP Sys/Stock Pulse Ox Last 24 Hr 97.4 F-98.4 F 66-89 16-20 94-119/49-78 99-99 PHYSICAL EXAM GENERAL: aaox3, nad LUNGS: CTAB HEART: rrr, normal s1/s2, no m/r/g ABDOMEN: soft, NTND EXTREMITIES: 2+ DP pulses, wwp, no edema LABS Laboratory Results - last 24 hr 02/19/18 09:10 Hemoglobin A1c % 6.6 H HOSPITAL COURSE: Date of Admission:02/18/18 Date of Discharge: 02/19/18 Pre-Hospital Course: 52yo woman with PMH of migraines, uterine fibroids, fibromyalgia, HLD (not on statin), chronic bilateral LE venous reflux who presents with L sided CP radiating to L arm that began yesterday evening. Patient is unable to describe nature of CP, but denies a stabbing or squeezing character; exacerbated with inspiration. No prior episodes of similar pain, but does endorse occasional chest pain when she "has gas". Patient has never seen a fruit tester; believes last PCP visit was about 1 year ago. She reports vigorous aerobic exercises on Monday and (standing bike), and reports no CP or sob during or after the exercises. She does endorse feeling "wiped out" the day after exercising. Endorses intermittent chest palpitation for the past week. Denies diarrhea, fever, chills, abdominal pain. No family or sick contacts. Prior to coming to the ED, the patient took ASA 325mg PO. In the ED, pt's VS were 130/80, HR 90, RR 19, pSaO2 98%. ER course was notable for: (1) Given ASA 325mg PO (2) CTA neg for PE (3) EKG: NSR, rate 72, inverted to flat T waves V1-V3 (change from prior 2008); QTc 444ms (4) 1st Trop-I neg (5) CXR: no acute pathology Subsequent Hospital Course: Patient was placed on telemetry and Cardiology was consulted. TSH wnl. Troponins were negative and no events on telemetry were noted. Patient had no further complaints of chest pain and overall symptomatology was not consistent with ACS. Patient had 2D ECHO and Stress ECHO performed that were wnl. Patient instructed to follow-up with Cardiology as OP. Patient complained of migraine, and was treated with Fioricet with good effect. Patient's Hgb A1C was found to be elevated to 6.6%, and patient was instructed to follow-up with PMD. CONSULTS: Cardiology - Dr. Lazar IMAGIND ECHO (02/19/18): LV size and function nml. No RWA. EF 65-70%; RV systolic function nml. LA/RA normal size. mild MR. No significant changes compared to 08/2014 study. Exercise Stress 2D ECHO (02/19/18: Negative exercise stress echocardiogram, adequate by heart rate criteria, without symptoms, diagnostic EKG changes or echocardiographic evidence of ischemia. 1) Normal augmentation of all myocardial segments. 2) Patient exercised 10min into stage 4 Gianluca protocol and achieved 96% of MPTHR. 3) Appropriate BP response with peak BP of 130/80 mmHg. 4) No significant ECG abnormality. EXAM#: TYPE/EXAM: RESULT: [id number] CT/CHEST CTA Shortness of breath. Rule out PE. CT scan of the chest following intravenous contrast. A post intravenous contrast CT angiogram of the chest was performed utilizing pulmonary embolus protocol. Coronal/ sagittal reconstruction images were obtained. 71 cc of Omnipaque 350 was intravenously injected No gross filling defect is seen within the main pulmonary artery and its proximal branches. The thoracic and visualized portion of the upper abdominal aorta is normally enhanced without evidence of aneurysmal dilatation or dissection. The heart is within normal limits in size. No gross mediastinal or hilar enlarged lymph nodes are identified. Mild platelike atelectasis in the left lung base, laterally. No gross focal infiltrates are identified. No pneumothorax or pleural effusion is seen, bilaterally. Included portion of the upper abdomen appears unremarkable with heterogeneous enhancement of the spleen likely due to rapid intravenous contrast injection. The gallbladder is nondistended significantly limiting its evaluation. Visualized osseous structures appear intact IMPRESSION: There is no evidence of a pulmonary embolus within the main pulmonary artery and its proximal branches, bilaterally. Minimal atelectatic changes in the left lung base, laterally without evidence of focal infiltrates or acute lung disease EXAM#: TYPE/EXAM: RESULT: [id number] RAD/CHEST X-RAY PORTABLE* AP portable chest : Shortness of breath. Chest pain Since 01/04/2009, there is no change of an adverse nature and no sign of an acute process. There is a healed fracture deformity of the right clavicle and attempted fusion of the anterior aspects of the right first and second ribs. The lungs are clear. The mediastinum is not widened. The angles are sharp and the soft tissues are intact. Impression: No acute pathology. No significant change. Minutes to complete discharge: 45 Discharge Summary Reason For Visit: CHEST PAIN Condition: Stable - Instructions Diet, Activity, Other Instructions: You were observed in the hospital for Left sided chest pain. An ultrasound of your heart was within normal limits. There was mild leakiness in one of your heart valves (mitral regurgitation) that is not significantly changed from your prior study in 2013. You had stress echo, prelim result is negative for concerning findings and you are advised outpatient follow up. Your hemoglobin A1c, a marker for diabetes, is 6.6%. Typically, diabetes is defined as hemoglobin A1c above 6.5%. It is important that you discuss this finding with your primary care physician and get monitored for the same outpatient. Make an appointment to see Dr. Snow or Dr. Lazar (Cardiology) in 1-2 weeks. A referral to Dr. See, a Neurologist, is provided for your migraines. Please return to the Emergency Department if you have worsening chest pain, shortness of breath, or any new or concerning symptoms. Referrals: Toño Becerra [Non Staff, Medical] - Lemuel Snow MD [Staff Physician] - Axel See DO [Staff Physician] - Disposition: HOME - Home Medications Comprehensive Discharge Medication List: Ambulatory Orders Cholecalciferol (Vitamin D3) [Vitamin D -] 400 unit PO DAILY 02/17/18 Ferrous Sulfate [Iron] 325 mg PO DAILY 02/17/18 Vitamin A 0 unit PO DAILY 02/17/18 Vitamin E 0 unit PO DAILY 02/17/18 This patient is new to me today: No Emergency Visit: No Critical Care patient: No - Discharge Referral Referred to [facility] No
== END 2018-02-19 18:17 | disposition home or self-care (01) ==
LOC: JER 21:22 → JERBED 02-18 02:04 → J4W 02-18 03:11
PROVIDERS: ADMIT Internal Medicine; ATTEND Hospitalist
PROC: 3E0337Z Introduction of Electrolytic and Water Balance Substance into Peripheral Vein, Percutaneous Approach (ICD-10-PCS; principal; 2018-02-18)
DX: R07.9 Chest pain, unspecified (principal); R79.89 Other specified abnormal findings of blood chemistry; G43.909 Migraine, unspecified, not intractable, without status migrainosus; M79.7 Fibromyalgia; E78.5 Hyperlipidemia, unspecified; J45.909 Unspecified asthma, uncomplicated; Z88.0 Allergy status to penicillin
CPT/HCPCS: 36415; 71045-TC-FY; 71275-TC; 80048; 80053; 82550; 83036; 83735; 84443; 84484; 85025; 85027; 85610; 93005; 93010; 93306-TC; 93351; 99283-25; G0378

== ENCOUNTER 2019-01-02 13:52 | Emergency (ER) | payer OTHER ==
[2019-01-02] MEDS ORDERED: SODIUM CHLORIDE 1,000 ML IV STA (14:05)
--- NOTE | 2019-01-02 14:05 | PDOC ---
Rapid Medical Evaluation Time Seen by Provider: 01/02/19 14:03 Medical Evaluation: Allergies Allergy/AdvReac Type Severity Reaction Status Date / Time Penicillins Allergy Verified 02/17/18 21:26 01/02/19 14:03 I have performed a brief in-person evaluation of this patient. The patient presents with a chief complaint of: "I feel bumps in my stomach." Pertinent physical exam findings: firm non-pulsatile palpable masses in epigastrum, suprapubic I have ordered the following: labs, urine, CTAP The patient will proceed to the ED for further evaluation. 01/02/19 14:04 Discharge Disposition - Diagnosis Abdominal mass - Referrals - Patient Instructions - Post Discharge Activity
[2019-01-02 14:06] VITALS: BMI 27.1
[2019-01-02] MEDS ORDERED: ACETAMINOPHEN 1000 MG/100 ML VIAL (NON FORMULARY) IVPB ONE (14:06)
[2019-01-02] MEDS ORDERED: ACETAMINOPHEN INJECTION 100 ML IVPB ONE (14:43)
[2019-01-02 14:47] LABS: EOS % 2.8 % (0-4.5); HEMATOCRIT 39.5 % (32.4-45.2); HEMOGLOBIN 13.3 GM/dL (10.7-15.3); LYMPH % 31.1 % (8-40); MCH 32.6 pg (25.7-33.7); MCHC 33.8 g/dl (32.0-36.0); MEAN CELL VOLUME 96.7 fl (80-96); MEAN PLT VOLUME 8.6 fl (7.5-11.1); MONO % 7.9 % (3.8-10.2); NEUT % 57.2 % (42.8-82.8); PLATELET COUNT 278 K/MM3 (134-434); RBC 4.09 M/mm3 (3.60-5.2); RDW 14.1 % (11.6-15.6); WHITE BLOOD COUNT 6.6 K/mm3 (4.0-10.0)
--- NOTE | 2019-01-02 14:53 | PDOC ---
History of Present Illness - General Chief Complaint: Pain, Acute Stated Complaint: ABD PAIN Time Seen by Provider: 01/02/19 14:03 History Source: Patient Exam Limitations: Clinical Condition - History of Present Illness Initial Comments: 01/02/19 14:48 Patient with history of acid reflux and asthma uncomplicated present with complaint one-week history of epigastric pain, intermittent dizziness and constipation. Patient denies nausea, vomiting or fevers. Patient reported last bowel movement today which is irregular. Denies chest pain, shortness of breath , numbness or tingling sensation or palpitations. Timing/Duration: 1 week Past History - Past Medical History Allergies/Adverse Reactions: Allergies Allergy/AdvReac Type Severity Reaction Status Date / Time Penicillins Allergy Verified 02/17/18 21:26 Home Medications: Ambulatory Orders Famotidine [Pepcid] 20 mg PO DAILY 10 Days #10 tablet 01/02/19 Mag Hydrox/Aluminum Hyd/Simeth [Maalox Advanced Suspension] 30 ml PO Q8H PRN # 200 ml 01/02/19 Polyethylene Glycol 3350 [Miralax (For Daily Use) -] 17 gm PO DAILY #1 bottle Asthma: Yes CVA: No COPD: No DVT: No Hypercholesterolemia: Yes - Immunization History Immunization Up to Date: Yes - Suicide/Smoking/Psychosocial Hx Smoking History: Never smoked Have you smoked in the past 12 months: No Information on smoking cessation initiated: No Hx Alcohol Use: No Drug/Substance Use Hx: No Review of Systems - Review of Systems Able to Perform ROS?: Yes Is the patient limited [place] proficient: No Constitutional: Yes: Fever. No: Chills, Malaise HEENTM: No: Symptoms Reported Respiratory: No: Symptoms reported ABD/GI: Yes: See HPI, Abd. Pain w/ defecation, Constipated, Abdominal cramping ( epigastric pain). No: Blood Streaked Bowels, Diarrhea, Difficulty Swallowing, Nausea, Rectal Bleeding, Vomiting, Tarry Stools : Yes: Frequency, Urgency. No: Dysuria, Discharge, Hematuria All Other Systems: Reviewed and Negative *Physical Exam - Vital Signs Last Vital Signs Temp Pulse Resp BP Pulse Ox 98.6 F 92 H 20 130/75 100 01/02/19 14:03 01/02/19 14:03 01/02/19 14:03 01/02/19 14:03 01/02/19 14:03 - Physical Exam Comments: 01/02/19 14:52 GENERAL: Well developed, well nourished. Awake and alert. No acute distress. HEENT: Normocephalic, atraumatic. PERRLA, EOMI. No conjunctival pallor. Sclera are non-icteric. Moist mucous membranes. Oropharynx is clear. NECK: Supple. Full ROM. CARDIOVASCULAR: Regular rate and rhythm. No murmurs, rubs, or gallops. Distal pulses are 2+ and symmetric. PULMONARY: No evidence of respiratory distress. Lungs clear to auscultation bilaterally. No wheezing, rales or rhonchi. ABDOMINAL: Mild epigastric and right upper quadrant pain. Soft. Non-distended. No rebound or guarding. No organomegaly. Normoactive bowel sounds. MUSCULOSKELETAL Normal range of motion at all joints. SKIN: Warm and dry. no cynosis. Normal capillary refill. No rashes. No jaundice. NEUROLOGICAL: Alert, awake, appropriate. Gait is normal without ataxia. PSYCHIATRIC: Cooperative. Good eye contact. Appropriate mood General Appearance: Yes: Nourished, Appropriately Dressed. No: Apparent Distress Moderate Sedation - Procedure Monitoring Vital Signs: Procedure Monitoring Vital Signs Temperature 98.6 F 01/02/19 14:03 Pulse Rate 92 H 01/02/19 14:03 Respiratory Rate 20 01/02/19 14:03 Blood Pressure 130/75 01/02/19 14:03 O2 Sat by Pulse Oximetry (%) 100 01/02/19 14:03 ED Treatment Course - LABORATORY CBC & Chemistry Diagram: 01/02/19 14:33 01/02/19 14:33 Medical Decision Making - Medical Decision Making 01/03/19 09:22 01/02/19 14:48 Patient with history of acid reflux and asthma uncomplicated present with complaint one-week history of epigastric pain, intermittent dizziness and constipation. Patient denies nausea, vomiting or fevers. Patient reported last bowel movement today which is irregular. Denies chest pain, shortness of breath , numbness or tingling sensation or palpitations. Clinical exam significant for epigastric and RUQ pains. abd US shows no acute cholecystitis. CBC labs unremarkable. chemistry labs normal . UA shows hematuria. hcg negative. abd/pelvic CT shows non-obstructing right nephrolithiasis and 1.5cm hyperdense renal mass. Results discussed with patent and advised patient on the needed for follow-up with urology and nephrology. Patient voiced understanding and agrees to follow-up *DC/Admit/Observation/Transfer Diagnosis at time of Disposition: Nephrolithiasis Abdominal mass Qualifiers: Abdominal location: epigastric Qualified Code(s): R19.06 - Epigastric swelling , mass or lump - Discharge Dispostion Disposition: HOME Condition at time of disposition: Stable Decision to Admit order: No - Prescriptions Prescriptions: Famotidine [Pepcid] 20 mg PO DAILY 10 Days #10 tablet Mag Hydrox/Aluminum Hyd/Simeth [Maalox Advanced Suspension] 30 ml PO Q8H PRN # 200 ml PRN Reason: abdominal discomfort Polyethylene Glycol 3350 [Miralax (For Daily Use) -] 17 gm PO DAILY #1 bottle - Referrals Referrals: Toño Becerra [Primary Care Provider] - Jackson Cade MD., [Staff Physician] - Erica Owen MD [Staff Physician] - Bruce Quispe MD [Staff Physician] - - Patient Instructions Printed Discharge Instructions: Gastritis Additional Instructions: Take prescribed medications as need for abdominal pains. Follow-up with urologist Dr. Cade for kidney stonen and farm reporter Dr. Owen for renal mass on CT. Follow-up with GI Dr. Quispe for abdominal pains. Follow-up with your [employer] with uterine fibroids. It is important you follow-up with referred urology and farm reporter on the Cats scan results - Post Discharge Activity
[2019-01-02 15:21] LABS: ALBUMIN 3.7 g/dl (3.4-5.0); ALK PHOS 96 U/L (45-117); ANION GAP 5 MMOL/L (8-16); BILIRUBIN,TOTAL 0.2 mg/dL (0.2-1); BLOOD UREA NITROGEN 22 mg/dL (7-18); CALCIUM 9.1 mg/dL (8.5-10.1); CHLORIDE 108 mmol/L (98-107); CO2 26 mmol/L (21-32); CREATININE 0.8 mg/dL (0.55-1.3); GLUCOSE,RANDOM 93 mg/dL (74-106); LIPASE 158 U/L (73-393); SGOT/AST 19 U/L (15-37); SGPT/ALT 31 U/L (13-61); SODIUM 139 mmol/L (136-145); TOT PROT 7.7 g/dl (6.4-8.2)
[2019-01-02 15:47] LABS: URINE APPEARANCE CLEAR; URINE BILIRUBIN NEGATIVE (<2.0 mg/dL); URINE COLOR LTYELLOW; URINE GLUCOSE (UA) NEGATIVE (NEGATIVE); URINE KETONE NEGATIVE (NEGATIVE); URINE LEUK ESTERASE NEGATIVE (NEGATIVE); URINE NITRITE NEGATIVE (NEGATIVE); URINE PROTEIN NEGATIVE (NEGATIVE); URINE UROBILINOGEN NEGATIVE mg/dL (0.2-1.0)
[2019-01-02 15:48] LABS: EPI CELLS RARE /HPF (FEW); URINE MUCUS RARE
[2019-01-02 19:45] VITALS: BP 118/71; PULSE 79; TEMP 98
--- NOTE | 2019-01-03 10:53 | EKG ---
Test Reason : Blood Pressure : / mmHG Vent. Rate : 071 BPM Atrial Rate : 071 BPM P-R Int : 148 ms QRS Dur : 082 ms QT Int : 406 ms P-R-T Axes : 068 005 037 degrees QTc Int : 441 ms NORMAL SINUS RHYTHM NORMAL ECG WHEN COMPARED WITH ECG OF 17-FEB-2018 21:31, NONSPECIFIC T WAVE ABNORMALITY HAS REPLACED INVERTED T WAVES IN ANTERIOR LEADS Confirmed by GRACE VALLE, PAM ([id number]) on 01/03/2019 10:52:43 AM Referred By: Confirmed By:PAM EDWARDS MD
== END 2019-01-02 19:45 | disposition home or self-care (01) ==
LOC: JER 13:52
PROC: 3E033NZ Introduction of Analgesics, Hypnotics, Sedatives into Peripheral Vein, Percutaneous Approach (ICD-10-PCS; principal; 2019-01-02)
DX: N20.0 Calculus of kidney (principal); N28.89 Other specified disorders of kidney and ureter; K21.9 Gastro-esophageal reflux disease without esophagitis
CPT/HCPCS: 36415; 74177-TC; 76705-TC; 80053; 81003; 81015; 83690; 84703; 85025; 93005; 93010; 99283-25; J0131; J7030

== ENCOUNTER 2020-06-18 21:00 | Emergency (ER) | payer OTHER ==
[2020-06-18 21:18] VITALS: TEMP 98.6; BMI 25.7
--- NOTE | 2020-06-18 21:42 | PDOC ---
History of Present Illness - General Chief Complaint: Edema Stated Complaint: RT LEG SWOLLEN Time Seen by Provider: 06/18/20 21:41 History Source: Patient Exam Limitations: No Limitations - History of Present Illness Initial Comments: 06/18/20 21:41 Chyna Lopez is a 54F [employer] recently started on hormone replacement therapy for post-menopausal symptoms presenting with leg swelling and bruising. Patient reports 2 weeks ago she was started on HRT by [place], wears an estradiol patch daily. Since then her hot flashes have resolved, but gets leg discomfort at night. Today noticed that her legs were a bit swollen with bruising and pain/tenderness. Denies SOB, chest pain, palpitations. Has history of venous reflux in the lower extremities that have caused swelling in the past, but has never caused pain. No prior history of clotting disorders, DVT, or PE. Denies SOB, chest pain, palpitations, MCKEON, abdominal pain, urinary symptoms, F/C/N/V/D. No other significant PMH. No trauma to the lower extremities, has been doing some exercise recently but nothing out of the ordinary. No prior surgeries. No other medications taken. Past History - Medical History Allergies/Adverse Reactions: Allergies Allergy/AdvReac Type Severity Reaction Status Date / Time Penicillins Allergy Verified 02/17/18 21:26 Home Medications: Ambulatory Orders Famotidine [Pepcid] 20 mg PO DAILY 10 Days #10 tablet 01/02/19 Mag Hydrox/Aluminum Hyd/Simeth [Maalox Advanced Suspension] 30 ml PO Q8H PRN #200 ml 01/02/19 Polyethylene Glycol 3350 [Miralax (For Daily Use) -] 17 gm PO DAILY #1 bottle 01/02/19 Asthma: Yes CVA: No COPD: No DVT: No Hypercholesterolemia: Yes - Reproductive History Is Patient Now?: Yes - Immunization History Immunization Up to Date: Yes - Psycho-Social/Smoking History Smoking History: Never smoked Have you smoked in the past 12 months: No - Substance Abuse Hx (Audit-C & DAST Scrn) How often the patient has a drink containing alcohol: Never Score: In Men: 4 or > Positive; In Women: 3 or > Positive: 0 Screen Result (Pos requires Nsg. Audit-10AR): Negative In the last yr the pt used illegal drug/Rx for NonMed reason: No Score: Yes response is considered Positive: 0 Screen Result (Positive result requires Nsg. DAST-10): Negative Review of Systems - Review of Systems Able to Perform ROS?: Yes Constitutional: No: Symptoms Reported HEENTM: No: Symptoms Reported Respiratory: No: Symptoms reported Cardiac (ROS): No: Symptoms Reported ABD/GI: No: Symptoms Reported : No: Symptoms Reported Musculoskeletal: Yes: Muscle Pain Integumentary: Yes: Bruising Neurological: No: Symptoms reported Endocrine: No: Symptoms Reported Hematologic/Lymphatic: No: Symptoms Reported All Other Systems: Reviewed and Negative *Physical Exam - Vital Signs Last Vital Signs Temp Pulse Resp BP Pulse Ox 98.6 F 81 19 138/66 99 06/18/20 21:05 06/18/20 21:05 06/18/20 21:05 06/18/20 21:05 06/18/20 21:05 - Physical Exam General Appearance: Yes: Nourished, Appropriately Dressed. No: Apparent Distress HEENT: positive: EOMI, ROGELIO, Normal Voice, Symmetrical, TMs Normal, Hearing Grossly Normal. negative: Scleral Icterus (R), Scleral Icterus (L), Pharyngeal Erythema, Tonsillar Exudate, Tonsillar Erythema Neck: positive: Trachea midline, Normal Thyroid, Supple. negative: Tender, Rigid, Lymphadenopathy (R), Lymphadenopathy (L) Respiratory/Chest: positive: Lungs Clear, Normal Breath Sounds. negative: Chest Tender, Respiratory Distress, Accessory Muscle Use, Crackles, Rales, Rhonchi, Stridor, Wheezing Cardiovascular: positive: Regular Rhythm, Regular Rate Gastrointestinal/Abdominal: positive: Normal Bowel Sounds, Flat, Soft. negative: Tender, Organomegaly, Pulsatile Mass, Guarding, Rebound, Tenderness Musculoskeletal: positive: Normal Inspection. negative: CVA Tenderness, Decreased Range of Motion, Muscle Spasm Extremity: positive: Normal Capillary Refill, Normal Range of Motion, Tender (TTP above bruises and to lateral gastroc to LLE), Pelvis Stable, Swelling, Calf Tenderness, Other (scattered bruises to lower extremities, good DP pulses, good color, cap refill <2sec, full ROM without pain, sensation equal to LT, 5/5 motor all groups, gait normal). negative: Normal Inspection, Coldness, Cyanosis, Pedal Edema, Erythema Integumentary: positive: Normal Color, Dry, Warm Neurologic: positive: Fully Oriented, Alert, Normal Mood/Affect, Normal Response, Motor Strength 02/24 ED Treatment Course - LABORATORY CBC & Chemistry Diagram: 06/18/20 21:53 06/18/20 21:53 Medical Decision Making - Medical Decision Making 06/19/20 00:31 Patient presents with recent start of HRT and now having BLE swelling with pain and bruising consistent with possible DVT, no SOB or tachycardia concerning for PE at this time. Evaluating via CMP/CBC/Coags with BLE Duplex. Labs notable for: - CBC WNL - CMP WNL - Coags WNL ECG sinus bradycardia with HR 55, QTc 409, no REE/D or TWI. BLE Duplex shows no DVT. Patient has no obvious coagulopathy or other pathology requiring anti- coagulation or admission. Will discuss results with patient and will likely discharge home. 06/19/20 00:45 Patient reports no recent injuries and started HRT for menopause hot flashes. Says she has pain in her legs every night since using HRT, but menopause symptoms resolved. Has less pain at this time after taking off HRT patch at start of ED visit. Recommended that patient stop HRT and see prescribing physician for alternatives. Patient agrees. Stable for discharge home. Discharge - Discharge Information Problems reviewed: Yes Clinical Impression/Diagnosis: Leg pain, bilateral Condition: Stable Disposition: HOME - Follow up/Referral Referrals: Toño Becerra [Primary Care Provider] - - Patient Discharge Instructions Additional Instructions: Today you were evaluated for bruising and pain in your legs. Your blood works do not show any problems. Your ultrasound does not show any clots in your legs requiring treatment. The cause of your bruising is likely related to the recent HRT use. We recommend that you stop the HRT as you are experiencing side effects from this. At home, avoid injuries or other actions that may cause bruising. Please see your regular doctor in the next week for further care and alternatives for your menopause symptoms. If you experience worse leg pain, difficulty breathing, chest pain, or any other new or concerning symptoms, please return to the emergency room. - Post Discharge Activity
--- NOTE | 2020-06-18 22:17 | PDOC ---
Attending Attestation - Resident Resident Name: Hammad Lal - ED Attending Attestation I have performed the following: I have examined & evaluated the patient, The case was reviewed & discussed with the resident, I agree w/resident's findings & plan, Exceptions are as noted - HPI HPI: 06/19/20 07:53 See resident HPI - Physicial Exam PE: 06/19/20 07:53 Agree with documented exam - Medical Decision Making 06/19/20 07:53 B/L lower extremity swell eval dvt f/u labs, ekg, venous duplex us dispo per clinical course Discharge - Discharge Information Problems reviewed: Yes Clinical Impression/Diagnosis: Leg pain, bilateral Condition: Stable Disposition: HOME - Follow up/Referral Referrals: Toño Becerra [Primary Care Provider] - - Patient Discharge Instructions Additional Instructions: Today you were evaluated for bruising and pain in your legs. Your blood works do not show any problems. Your ultrasound does not show any clots in your legs r equiring treatment. The cause of your bruising is likely related to the recent HRT use. We recommend that you stop the HRT as you are experiencing side effects from this. At home, avoid injuries or other actions that may cause bruising. Please see your regular doctor in the next week for further care and alternatives for your menopause symptoms. If you experience worse leg pain, difficulty breathing, chest pain, or any other new or concerning symptoms, please return to the emergency room. - Post Discharge Activity
[2020-06-18 23:01] LABS: BASO % 0.5 % (0-2.0); EOS % 2.6 % (0-4.5); HEMATOCRIT 35.9 % (32.4-45.2); LYMPH % 38.8 % (8-40); MCH 32.2 pg (25.7-33.7); MCHC 33.5 g/dl (32.0-36.0); MEAN CELL VOLUME 96.1 fl (80-96); MEAN PLT VOLUME 8.7 fl (7.5-11.1); MONO % 9.7 % (3.8-10.2); NEUT % 48.4 % (42.8-82.8); PLATELET COUNT 210 K/MM3 (134-434); RBC 3.73 M/mm3 (3.60-5.2); RDW 13.9 % (11.6-15.6)
[2020-06-18 23:09] LABS: INR 1.02 (0.83-1.09)
[2020-06-18 23:11] LABS: ACTIVATED PTT 33.3 SECONDS (25.2-36.5)
[2020-06-18 23:28] LABS: BILIRUBIN,TOTAL 0.3 mg/dL (0.2-1); BLOOD UREA NITROGEN 17.7 mg/dL (7-18); CALCIUM 9.2 mg/dL (8.5-10.1); CREATININE 0.9 mg/dL (0.55-1.3); POTASSIUM 3.8 mmol/L (3.5-5.1)
[2020-06-18 23:29] LABS: ALBUMIN 3.6 g/dl (3.4-5.0)
[2020-06-19 01:13] VITALS: BP 135/66; PULSE 84
--- NOTE | 2020-06-19 11:03 | EKG ---
Test Reason : Blood Pressure : / mmHG Vent. Rate : 055 BPM Atrial Rate : 055 BPM P-R Int : 158 ms QRS Dur : 078 ms QT Int : 428 ms P-R-T Axes : 063 019 033 degrees QTc Int : 409 ms SINUS BRADYCARDIA WHEN COMPARED WITH ECG OF 02-JAN-2019 14:42, T WAVE AMPLITUDE HAS INCREASED IN LATERAL LEADS Confirmed by JOSE A CAIN MD ([id number]) on 06/19/2020 11:02:31 AM Referred By: Confirmed By:JOSE A CAIN MD
== END 2020-06-19 01:31 | disposition home or self-care (01) ==
LOC: JER 21:00
DX: M79.604 Pain in right leg (principal); M79.605 Pain in left leg
CPT/HCPCS: 36415; 80053; 85025; 85610; 85730; 93005; 93010; 93970-TC; 99285-25

== ENCOUNTER 2020-10-05 15:55 | Emergency (ER) | payer OTHER ==
[2020-10-05 16:01] VITALS: BP 115/78; PULSE 84; TEMP 98.1; BMI 26.1
[2020-10-05] MEDS ORDERED: ACETAMINOPHEN 1000 MG/100 ML VIAL (NON FORMULARY) IVPB ONE (17:03)
[2020-10-05] MEDS ORDERED: SODIUM CHLORIDE 1,000 ML IV STA (17:03)
[2020-10-05] MEDS ORDERED: METOCLOPRAMIDE HCL INJECTION 10 MG/2 ML VIAL IVPB ONE (17:03)
[2020-10-05] MEDS ORDERED: ACETAMINOPHEN INJECTION 0 ML IVPB ONE (17:21)
[2020-10-05] MEDS ORDERED: METOCLOPRAMIDE HCL INJECTION 10 MG/2 ML VIAL ONE ×2 (17:21→17:25)
[2020-10-05] MEDS ORDERED: FAMOTIDINE 20 MG/50 ML IVPB 20 MG/50 ML MG IVPB ONE (17:25)
[2020-10-05] MEDS ORDERED: ACETAMINOPHEN INJECTION 100 ML IVPB ONE (17:25)
[2020-10-05 17:59] LABS: BASO % 0.6 % (0-2.0); EOS % 3.2 % (0-4.5); HEMATOCRIT 40.5 % (32.4-45.2); HEMOGLOBIN 13.3 GM/dL (10.7-15.3); LYMPH % 39.1 % (8-40); MCH 31.9 pg (25.7-33.7); MCHC 32.9 g/dl (32.0-36.0); MONO % 9.2 % (3.8-10.2); NEUT % 47.9 % (42.8-82.8); RBC 4.17 M/mm3 (3.60-5.2); RDW 13.5 % (11.6-15.6); WHITE BLOOD COUNT 5.6 K/mm3 (4.0-10.0)
[2020-10-05 18:23] LABS: POTASSIUM 3.8 mmol/L (3.5-5.1)
[2020-10-05 18:24] LABS: CALCIUM 9.6 mg/dL (8.5-10.1)
[2020-10-05 18:25] LABS: ALBUMIN 3.9 g/dl (3.4-5.0); BLOOD UREA NITROGEN 17.9 mg/dL (7-18)
[2020-10-05 18:28] LABS: CREATININE 0.9 mg/dL (0.55-1.3)
[2020-10-05 18:30] LABS: BILIRUBIN,TOTAL 0.3 mg/dL (0.2-1); TOT PROT 7.8 g/dl (6.4-8.2)
[2020-10-05 18:57] LABS: PLATELET ESTIMATE NORMAL
[2020-10-05 19:05] LABS: MEAN PLT VOLUME 8.8 fl (7.5-11.1); PLATELET COUNT 250 K/MM3 (134-434)
== END 2020-10-05 22:10 | disposition home or self-care (01) ==
LOC: JER 15:55
PROC: 3E0333Z Introduction of Anti-inflammatory into Peripheral Vein, Percutaneous Approach (ICD-10-PCS; principal; 2020-10-05)
PROC: 3E033GC Introduction of Other Therapeutic Substance into Peripheral Vein, Percutaneous Approach (ICD-10-PCS; 2020-10-05)
PROC: 3E033GC Introduction of Other Therapeutic Substance into Peripheral Vein, Percutaneous Approach (ICD-10-PCS; 2020-10-05)
PROC: 3E033GC Introduction of Other Therapeutic Substance into Peripheral Vein, Percutaneous Approach (ICD-10-PCS; 2020-10-05)
PROC: 3E0337Z Introduction of Electrolytic and Water Balance Substance into Peripheral Vein, Percutaneous Approach (ICD-10-PCS; 2020-10-05)
DX: R22.41 Localized swelling, mass and lump, right lower limb (principal); R51.9 Headache, unspecified
CPT/HCPCS: 36415; 70450-TC; 71046-TC-FY; 80053; 82550; 83880; 84484; 84703; 85025; 93005; 93010; 93971-TC; 96361; 96374; 96375; 99285-25; J0131

== ENCOUNTER 2022-02-27 12:04 | Inpatient (IN) | payer OTHER ==
[2022-02-27] MEDS ORDERED: MAG HYDROX/AL HYDROX/SIMETH 30 ML UNIT-DOSE CUP PO ONE (13:04)
[2022-02-27] MEDS ORDERED: ONDANSETRON 4 MG/2 ML VIAL IVPUSH ONE (13:04)
[2022-02-27] MEDS ORDERED: FAMOTIDINE 20 MG/50 ML IVPB 20 MG/50 ML MG IVPB ONE (13:04)
[2022-02-27] MEDS ORDERED: SUCRALFATE 1 GM TABLET (FP) PO ONE (13:04)
[2022-02-27] MEDS ORDERED: ACETAMINOPHEN 1000 MG/100 ML BAG IVPB ONE (13:04)
[2022-02-27] MEDS ORDERED: MAG HYDROX/AL HYDROX/SIMETH 30 ML UNIT-DOSE CUP ONE (13:31)
[2022-02-27] MEDS ORDERED: SUCRALFATE 1 GM TABLET (FP) ONE (13:31)
[2022-02-27] MEDS ORDERED: ACETAMINOPHEN INJECTION 100 ML IVPB ONE (13:31)
[2022-02-27] MEDS ORDERED: ONDANSETRON 4 MG/2 ML VIAL ONE (13:31)
[2022-02-27] MEDS ORDERED: FAMOTIDINE 10 MG/ML VIAL IVPB ONE (13:32)
[2022-02-27 14:01] LABS: BASO % 0.3 % (0-2.0); EOS % 0.3 % (0-4.5); HEMATOCRIT 38.3 % (32.4-45.2); HEMOGLOBIN 12.9 GM/dL (10.7-15.3); MCH 31.9 pg (25.7-33.7); MCHC 33.8 g/dl (32.0-36.0); MEAN CELL VOLUME 94.3 fl (80-96); MEAN PLT VOLUME 8.7 fl (7.5-11.1); MONO % 7.8 % (3.8-10.2); NEUT % 79.6 % (42.8-82.8); PLATELET COUNT 224 10^3/uL (134-434); RBC 4.06 M/mm3 (3.60-5.2); RDW 13.5 % (11.6-15.6); WHITE BLOOD COUNT 11.5 K/mm3 (4.0-10.0)
[2022-02-27 14:24] LABS: BLOOD UREA NITROGEN 13.5 mg/dL (7-18); CALCIUM 9.3 mg/dL (8.5-10.1)
[2022-02-27 14:27] LABS: CREATININE 0.9 mg/dL (0.55-1.3)
[2022-02-27 14:28] LABS: BILIRUBIN,TOTAL 0.6 mg/dL (0.2-1); TOT PROT 7.3 g/dl (6.4-8.2)
[2022-02-27 14:53] LABS: EPI CELLS 1 /uL (0-25.1); HYALINE CASTS 0 /uL (0-3.1); PH,URINE 6.5 (5.0-8.0); URINE APPEARANCE CLEAR; URINE BACTERIA 8 /uL (0-1359); URINE BILIRUBIN NEGATIVE (NEGATIVE); URINE COLOR YELLOW; URINE GLUCOSE (UA) NEGATIVE (NEGATIVE); URINE KETONE NEGATIVE (NEGATIVE); URINE LEUK ESTERASE NEGATIVE (NEGATIVE); URINE NITRITE NEGATIVE (NEGATIVE); URINE PROTEIN NEGATIVE (NEGATIVE); URINE RBC 44 /uL (0-23.9); URINE UROBILINOGEN 0.2 mg/dL (0.2-1.0); URINE WBC 1 /uL (0-25.8)
[2022-02-27 14:54] LABS: HCG,QUALITATIVE URINE Negative
[2022-02-27] MEDS ORDERED: KETOROLAC TROMETHAMINE 15 MG/ML VIAL IVPUSH ONE (15:46)
[2022-02-27] MEDS ORDERED: KETOROLAC TROMETHAMINE 15 MG/ML VIAL ONE (15:56)
[2022-02-27] MEDS ORDERED: METOCLOPRAMIDE HCL INJECTION 10 MG/2 ML VIAL IVPUSH ONE (16:55)
[2022-02-27] MEDS ORDERED: METOCLOPRAMIDE HCL INJECTION 10 MG/2 ML VIAL ONE (17:24)
[2022-02-27] MEDS ORDERED: diphenhydrAMINE HCL 25 MG CAPSULE (FP) PO ONE ×2 (21:46→21:47)
[2022-02-28] MEDS ORDERED: KETOROLAC TROMETHAMINE 15 MG/ML VIAL IVPUSH ONE (00:16)
[2022-02-28] MEDS ORDERED: KETOROLAC TROMETHAMINE 15 MG/ML VIAL ONE (00:23)
[2022-02-28] MEDS ORDERED: ACETAMINOPHEN 325 MG TABLET (FP) PO PRN (01:53)
[2022-02-28 02:27] LABS: BASO % 0.3 % (0-2.0); EOS % 0.2 % (0-4.5); HEMATOCRIT 35.7 % (32.4-45.2); HEMOGLOBIN 12.2 GM/dL (10.7-15.3); LYMPH % 11.8 % (8-40); MCH 31.9 pg (25.7-33.7); MCHC 34.3 g/dl (32.0-36.0); MEAN CELL VOLUME 92.9 fl (80-96); MEAN PLT VOLUME 8.4 fl (7.5-11.1); MONO % 7.6 % (3.8-10.2); NEUT % 80.1 % (42.8-82.8); PLATELET COUNT 198 10^3/uL (134-434); RBC 3.84 M/mm3 (3.60-5.2); RDW 13.4 % (11.6-15.6); WHITE BLOOD COUNT 12.3 K/mm3 (4.0-10.0)
[2022-02-28 07:32] LABS: INR 1.45 (0.83-1.09); PROTHROMBIN TIME (PATIENT) 16.7 SEC (9.7-13.0)
[2022-02-28 07:46] LABS: BASO % 0.3 % (0-2.0); EOS % 0.1 % (0-4.5); HEMOGLOBIN 12.4 GM/dL (10.7-15.3); LYMPH % 14.7 % (8-40); MCH 31.4 pg (25.7-33.7); MCHC 33.4 g/dl (32.0-36.0); MEAN CELL VOLUME 94.2 fl (80-96); MEAN PLT VOLUME 9.3 fl (7.5-11.1); MONO % 9.5 % (3.8-10.2); NEUT % 75.4 % (42.8-82.8); PLATELET COUNT 221 10^3/uL (134-434); RBC 3.93 M/mm3 (3.60-5.2); RDW 13.6 % (11.6-15.6); WHITE BLOOD COUNT 12.8 K/mm3 (4.0-10.0)
[2022-02-28 08:02] LABS: CALCIUM 8.9 mg/dL (8.5-10.1)
[2022-02-28 08:03] LABS: ALBUMIN 3.6 g/dl (3.4-5.0); BLOOD UREA NITROGEN 14.4 mg/dL (7-18); MAGNESIUM 2.3 mg/dL (1.8-2.4)
[2022-02-28 08:05] LABS: CREATININE 0.9 mg/dL (0.55-1.3); PHOSPHOROUS 3.8 mg/dL (2.5-4.9)
[2022-02-28 08:06] VITALS: BMI 27.8
[2022-02-28 08:07] LABS: BILIRUBIN,TOTAL 0.8 mg/dL (0.2-1)
[2022-02-28] MEDS ORDERED: DEXTROSE 5%-0.45% SALINE 1,000 ML IV SCH (10:30)
[2022-02-28] MEDS ORDERED: METOCLOPRAMIDE HCL INJECTION 10 MG/2 ML VIAL IVPUSH ONE (10:31)
[2022-02-28] MEDS ORDERED: PANTOPRAZOLE SODIUM 40 MG VIAL IVPUSH ONE (10:31)
[2022-02-28] MEDS: ENOXAPARIN NA (PORCINE) 40 MG/0.4 ML DISP.SYRIN SQ SCH (10:47)
[2022-02-28] MEDS ORDERED: DEXTROSE 5%-WATER 100 ML IVPB ONE ×2 (12:43→17:55)
[2022-02-28] MEDS ORDERED: AZTREONAM 2 GM VIAL (RESTRICTED TO ID) ONE ×2 (12:43→17:55)
[2022-02-28] MEDS: CLINDAMYCIN 600MG PREMIX IVPB 600 MG/50 ML BAG IVPB SCH ×2 (12:51→18:10)
[2022-02-28] MEDS: AZTREONAM 2 GM in DEXTROSE 5%-WATER 100 ML IVPB SCH ×2 (14:22→18:50)
[2022-02-28] MEDS: ACETAMINOPHEN 1000 MG/100 ML BAG IVPB PRN ×2 (15:22→22:47)
[2022-02-28] MEDS: DEXTROSE 5%-0.45% SALINE 1,000 ML IV SCH (22:51)
[2022-03-01] MEDS: CLINDAMYCIN 600MG PREMIX IVPB 600 MG/50 ML BAG IVPB SCH ×3 (01:49→17:56)
[2022-03-01] MEDS ORDERED: DEXTROSE 5%-WATER 100 ML IVPB ONE ×3 (02:28→18:06)
[2022-03-01] MEDS ORDERED: AZTREONAM 2 GM VIAL (RESTRICTED TO ID) ONE ×3 (02:28→18:06)
[2022-03-01] MEDS: AZTREONAM 2 GM in DEXTROSE 5%-WATER 100 ML IVPB SCH ×3 (02:32→18:41)
[2022-03-01 08:52] LABS: BASO % 0.5 % (0-2.0); EOS % 1.1 % (0-4.5); HEMATOCRIT 35.2 % (32.4-45.2); HEMOGLOBIN 11.8 GM/dL (10.7-15.3); LYMPH % 15.9 % (8-40); MCH 31.9 pg (25.7-33.7); MCHC 33.6 g/dl (32.0-36.0); MEAN CELL VOLUME 94.9 fl (80-96); MEAN PLT VOLUME 9.2 fl (7.5-11.1); MONO % 9.2 % (3.8-10.2); NEUT % 73.3 % (42.8-82.8); PLATELET COUNT 207 10^3/uL (134-434); RBC 3.71 M/mm3 (3.60-5.2); RDW 13.8 % (11.6-15.6); WHITE BLOOD COUNT 9.6 K/mm3 (4.0-10.0)
[2022-03-01 09:07] LABS: ALBUMIN 3.2 g/dl (3.4-5.0); BLOOD UREA NITROGEN 10.7 mg/dL (7-18); CALCIUM 9.2 mg/dL (8.5-10.1)
[2022-03-01 09:10] LABS: CREATININE 0.7 mg/dL (0.55-1.3)
[2022-03-01 09:12] LABS: BILIRUBIN,TOTAL 0.7 mg/dL (0.2-1)
[2022-03-01 09:13] LABS: TOT PROT 6.9 g/dl (6.4-8.2)
[2022-03-01] MEDS: ENOXAPARIN NA (PORCINE) 40 MG/0.4 ML DISP.SYRIN SQ SCH (09:35)
[2022-03-01] MEDS: ACETAMINOPHEN 1000 MG/100 ML BAG IVPB PRN ×2 (09:58→16:24)
[2022-03-01] MEDS: DEXTROSE 5%-0.45% SALINE 1,000 ML IV SCH ×2 (10:01→21:40)
[2022-03-01] MEDS ORDERED: SUMATRIPTAN SUCCINATE 6 MG/0.5 ML VIAL SQ ONE (12:15)
[2022-03-01] MEDS: FLUTICASONE PROP 0.05% 16 GM NASAL SPRAY NS SCH ×2 (12:40→21:41)
[2022-03-01] MEDS ORDERED: SUMATRIPTAN SUCCINATE 6 MG/0.5 ML VIAL SQ PRN (14:00)
[2022-03-01] MEDS: METOCLOPRAMIDE HCL INJECTION 10 MG/2 ML VIAL IVPUSH PRN (19:48)
[2022-03-02] MEDS: CLINDAMYCIN 600MG PREMIX IVPB 600 MG/50 ML BAG IVPB SCH ×3 (01:09→17:08)
[2022-03-02] MEDS ORDERED: DEXTROSE 5%-WATER 100 ML IVPB ONE ×3 (02:11→16:48)
[2022-03-02] MEDS ORDERED: AZTREONAM 2 GM VIAL (RESTRICTED TO ID) ONE ×3 (02:11→16:47)
[2022-03-02] MEDS: DEXTROSE 5%-0.45% SALINE 1,000 ML IV SCH ×2 (02:13→21:10)
[2022-03-02] MEDS: AZTREONAM 2 GM in DEXTROSE 5%-WATER 100 ML IVPB SCH ×3 (02:13→17:08)
[2022-03-02 08:13] LABS: BASO % 0.6 % (0-2.0); EOS % 1.8 % (0-4.5); HEMATOCRIT 34.2 % (32.4-45.2); HEMOGLOBIN 11.8 GM/dL (10.7-15.3); MCH 32.5 pg (25.7-33.7); MCHC 34.4 g/dl (32.0-36.0); MEAN CELL VOLUME 94.6 fl (80-96); MEAN PLT VOLUME 8.8 fl (7.5-11.1); MONO % 8.9 % (3.8-10.2); NEUT % 64.7 % (42.8-82.8); PLATELET COUNT 222 10^3/uL (134-434); RBC 3.62 M/mm3 (3.60-5.2); RDW 13.6 % (11.6-15.6); WHITE BLOOD COUNT 6.7 K/mm3 (4.0-10.0)
[2022-03-02] MEDS: FLUTICASONE PROP 0.05% 16 GM NASAL SPRAY NS SCH ×2 (09:34→21:19)
[2022-03-02] MEDS: ENOXAPARIN NA (PORCINE) 40 MG/0.4 ML DISP.SYRIN SQ SCH (09:35)
[2022-03-02 09:42] LABS: BLOOD UREA NITROGEN 9.7 mg/dL (7-18); CALCIUM 9.1 mg/dL (8.5-10.1)
[2022-03-02 09:46] LABS: CREATININE 0.7 mg/dL (0.55-1.3)
[2022-03-02] MEDS ORDERED: MINERAL OIL/PET HY-PHL TOPICAL OINTMENT 454 GM JAR TP PRN (10:45)
[2022-03-02] MEDS ORDERED: MIDAZOLAM HCL 2 MG/2 ML SINGLE DOSE VIAL ONE (10:59)
[2022-03-02] MEDS ORDERED: SODIUM CHLORIDE 1,000 ML IV STA (11:47)
[2022-03-02] MEDS: METOCLOPRAMIDE HCL INJECTION 10 MG/2 ML VIAL IVPUSH PRN (19:37)
[2022-03-02] MEDS ORDERED: ACETAMINOPHEN 1000 MG/100 ML BAG IVPB ONE (22:38)
[2022-03-03] MEDS: CLINDAMYCIN 600MG PREMIX IVPB 600 MG/50 ML BAG IVPB SCH ×4 (01:07→17:09)
[2022-03-03] MEDS ORDERED: AZTREONAM 2 GM VIAL (RESTRICTED TO ID) ONE ×3 (02:05→16:54)
[2022-03-03] MEDS ORDERED: DEXTROSE 5%-WATER 100 ML IVPB ONE ×2 (02:06→09:57)
[2022-03-03] MEDS: AZTREONAM 2 GM in DEXTROSE 5%-WATER 100 ML IVPB SCH ×3 (02:07→17:08)
[2022-03-03 07:53] LABS: BASO % 0.9 % (0-2.0); EOS % 3.5 % (0-4.5); HEMATOCRIT 33.2 % (32.4-45.2); HEMOGLOBIN 10.9 GM/dL (10.7-15.3); MCH 31.3 pg (25.7-33.7); MCHC 32.8 g/dl (32.0-36.0); MEAN CELL VOLUME 95.4 fl (80-96); MEAN PLT VOLUME 8.8 fl (7.5-11.1); MONO % 12.2 % (3.8-10.2); NEUT % 54.4 % (42.8-82.8); PLATELET COUNT 232 10^3/uL (134-434); RBC 3.48 M/mm3 (3.60-5.2); RDW 13.3 % (11.6-15.6)
[2022-03-03 08:39] LABS: CALCIUM 9.1 mg/dL (8.5-10.1)
[2022-03-03 08:40] LABS: BLOOD UREA NITROGEN 8.2 mg/dL (7-18)
[2022-03-03 08:43] LABS: CREATININE 0.7 mg/dL (0.55-1.3)
[2022-03-03] MEDS: ENOXAPARIN NA (PORCINE) 40 MG/0.4 ML DISP.SYRIN SQ SCH (09:29)
[2022-03-03] MEDS: DEXTROSE 5%-0.45% SALINE 1,000 ML IV SCH (09:31)
[2022-03-03] MEDS: FLUTICASONE PROP 0.05% 16 GM NASAL SPRAY NS SCH ×2 (09:33→21:26)
[2022-03-03] MEDS: SIMETHICONE 80 MG TAB.CHEW (FP) PO PRN (16:15)
[2022-03-04] MEDS: DEXTROSE 5%-0.45% SALINE 1,000 ML IV SCH (00:37)
[2022-03-04] MEDS ORDERED: AZTREONAM 2 GM VIAL (RESTRICTED TO ID) ONE ×3 (01:20→18:11)
[2022-03-04] MEDS ORDERED: DEXTROSE 5%-WATER 100 ML IVPB ONE ×3 (01:21→18:11)
[2022-03-04] MEDS: CLINDAMYCIN 600MG PREMIX IVPB 600 MG/50 ML BAG IVPB SCH ×3 (01:24→17:28)
[2022-03-04] MEDS: AZTREONAM 2 GM in DEXTROSE 5%-WATER 100 ML IVPB SCH ×3 (02:45→18:17)
[2022-03-04] MEDS ORDERED: LACTATED RINGERS SOLUTION 1,000 ML/1,000 ML INFUS.BAG IV SCH ×2 (06:00→08:00)
[2022-03-04 07:39] LABS: BASO % 0.9 % (0-2.0); EOS % 4.2 % (0-4.5); HEMATOCRIT 31.8 % (32.4-45.2); HEMOGLOBIN 10.6 GM/dL (10.7-15.3); LYMPH % 29.4 % (8-40); MCH 31.6 pg (25.7-33.7); MCHC 33.3 g/dl (32.0-36.0); MEAN CELL VOLUME 94.8 fl (80-96); MEAN PLT VOLUME 8.6 fl (7.5-11.1); MONO % 12.5 % (3.8-10.2); PLATELET COUNT 234 10^3/uL (134-434); RBC 3.35 M/mm3 (3.60-5.2); RDW 13.3 % (11.6-15.6); WHITE BLOOD COUNT 5.2 K/mm3 (4.0-10.0)
[2022-03-04 07:56] LABS: BLOOD UREA NITROGEN 7.9 mg/dL (7-18); CALCIUM 9.1 mg/dL (8.5-10.1)
[2022-03-04 08:00] LABS: CREATININE 0.7 mg/dL (0.55-1.3)
[2022-03-04] MEDS: FLUTICASONE PROP 0.05% 16 GM NASAL SPRAY NS SCH ×2 (09:57→23:01)
[2022-03-04] MEDS ORDERED: MIDAZOLAM HCL 2 MG/2 ML SINGLE DOSE VIAL ONE (10:03)
[2022-03-04] MEDS: SIMETHICONE 80 MG TAB.CHEW (FP) PO PRN (13:06)
[2022-03-04 13:16] LABS: BF WBC & OTHER NUCLEATED CELLS 6205 /mm3
[2022-03-04 14:11] LABS: BODY FLUID MONOCYTE 1 %
[2022-03-04] MEDS: ACETAMINOPHEN 1000 MG/100 ML BAG IVPB PRN ×2 (14:37→20:29)
[2022-03-05] MEDS ORDERED: AZTREONAM 2 GM VIAL (RESTRICTED TO ID) ONE ×3 (01:29→18:01)
[2022-03-05] MEDS ORDERED: DEXTROSE 5%-WATER 100 ML IVPB ONE ×3 (01:30→18:01)
[2022-03-05] MEDS: CLINDAMYCIN 600MG PREMIX IVPB 600 MG/50 ML BAG IVPB SCH ×3 (02:00→18:13)
[2022-03-05] MEDS: AZTREONAM 2 GM in DEXTROSE 5%-WATER 100 ML IVPB SCH ×3 (02:52→18:54)
[2022-03-05 08:57] LABS: EOS % 3.6 % (0-4.5); HEMATOCRIT 34.4 % (32.4-45.2); HEMOGLOBIN 11.4 GM/dL (10.7-15.3); LYMPH % 34.5 % (8-40); MCH 31.5 pg (25.7-33.7); MEAN CELL VOLUME 95.3 fl (80-96); MEAN PLT VOLUME 8.6 fl (7.5-11.1); MONO % 9.6 % (3.8-10.2); NEUT % 51.3 % (42.8-82.8); PLATELET COUNT 273 10^3/uL (134-434); RBC 3.61 M/mm3 (3.60-5.2); RDW 13.3 % (11.6-15.6); WHITE BLOOD COUNT 4.7 K/mm3 (4.0-10.0)
[2022-03-05 09:24] LABS: BLOOD UREA NITROGEN 10.3 mg/dL (7-18); CALCIUM 9.3 mg/dL (8.5-10.1); CREATININE 0.7 mg/dL (0.55-1.3)
[2022-03-05 09:26] LABS: BILIRUBIN,TOTAL 0.3 mg/dL (0.2-1)
[2022-03-05] MEDS: FLUTICASONE PROP 0.05% 16 GM NASAL SPRAY NS SCH ×2 (09:38→21:00)
[2022-03-05] MEDS: POLYETHYLENE GLYCOL (HEALTHYLAX) 3350 17 GM PACKET PO SCH (09:38)
[2022-03-05] MEDS: ENOXAPARIN NA (PORCINE) 40 MG/0.4 ML DISP.SYRIN SQ SCH (10:11)
[2022-03-05] MEDS: ACETAMINOPHEN 1000 MG/100 ML BAG IVPB PRN (12:10)
[2022-03-05] MEDS: ACETAMINOPHEN 325 MG TABLET (FP) PO PRN (14:39)
[2022-03-06] MEDS: CLINDAMYCIN 600MG PREMIX IVPB 600 MG/50 ML BAG IVPB SCH ×2 (01:12→09:22)
[2022-03-06] MEDS ORDERED: DEXTROSE 5%-WATER 100 ML IVPB ONE ×2 (01:47→10:04)
[2022-03-06] MEDS ORDERED: AZTREONAM 2 GM VIAL (RESTRICTED TO ID) ONE ×2 (01:47→10:03)
[2022-03-06] MEDS: AZTREONAM 2 GM in DEXTROSE 5%-WATER 100 ML IVPB SCH ×2 (01:52→10:15)
[2022-03-06] MEDS: ACETAMINOPHEN 325 MG TABLET (FP) PO PRN ×3 (01:59→21:06)
[2022-03-06] MEDS: FLUTICASONE PROP 0.05% 16 GM NASAL SPRAY NS SCH ×2 (09:11→21:07)
[2022-03-06] MEDS: POLYETHYLENE GLYCOL (HEALTHYLAX) 3350 17 GM PACKET PO SCH (09:22)
[2022-03-06] MEDS: ENOXAPARIN NA (PORCINE) 40 MG/0.4 ML DISP.SYRIN SQ SCH ×2 (10:14→10:59)
[2022-03-06 14:08] LABS: BASO % 0.8 % (0-2.0); EOS % 4.3 % (0-4.5); HEMATOCRIT 35.4 % (32.4-45.2); HEMOGLOBIN 11.9 GM/dL (10.7-15.3); LYMPH % 34.2 % (8-40); MCH 31.9 pg (25.7-33.7); MCHC 33.6 g/dl (32.0-36.0); MEAN PLT VOLUME 8.5 fl (7.5-11.1); MONO % 8.1 % (3.8-10.2); NEUT % 52.6 % (42.8-82.8); PLATELET COUNT 318 10^3/uL (134-434); RBC 3.73 M/mm3 (3.60-5.2); RDW 13.4 % (11.6-15.6)
[2022-03-06 14:38] LABS: BLOOD UREA NITROGEN 12.5 mg/dL (7-18); CALCIUM 9.2 mg/dL (8.5-10.1)
[2022-03-06 14:40] LABS: ALBUMIN 3.3 g/dl (3.4-5.0)
[2022-03-06 14:42] LABS: CREATININE 0.9 mg/dL (0.55-1.3)
[2022-03-06 14:43] LABS: BILIRUBIN,TOTAL 0.3 mg/dL (0.2-1); TOT PROT 7.6 g/dl (6.4-8.2)
[2022-03-06] MEDS: CEFUROXIME AXETIL 500 MG TABLET PO SCH (21:06)
[2022-03-07 00:13] LABS: BODY FLUID ALBUMIN 1.9 g/dL (Not Estab.)
[2022-03-07] MEDS: ACETAMINOPHEN 325 MG TABLET (FP) PO PRN ×2 (09:49→17:18)
[2022-03-07] MEDS: ENOXAPARIN NA (PORCINE) 40 MG/0.4 ML DISP.SYRIN SQ SCH ×2 (09:49→10:22)
[2022-03-07] MEDS: POLYETHYLENE GLYCOL (HEALTHYLAX) 3350 17 GM PACKET PO SCH (09:50)
[2022-03-07] MEDS: CEFUROXIME AXETIL 500 MG TABLET PO SCH (09:50)
[2022-03-07] MEDS: FLUTICASONE PROP 0.05% 16 GM NASAL SPRAY NS SCH (10:21)
[2022-03-07 11:13] LABS: ALBUMIN 3.2 g/dl (3.4-5.0); CALCIUM 9.9 mg/dL (8.5-10.1)
[2022-03-07 11:15] LABS: BLOOD UREA NITROGEN 13.6 mg/dL (7-18)
[2022-03-07 11:17] LABS: CREATININE 0.7 mg/dL (0.55-1.3)
[2022-03-07 11:19] LABS: BILIRUBIN,TOTAL 0.2 mg/dL (0.2-1); TOT PROT 7.6 g/dl (6.4-8.2)
[2022-03-07 11:33] LABS: BASO % 0.8 % (0-2.0); EOS % 3.7 % (0-4.5); HEMATOCRIT 36.9 % (32.4-45.2); HEMOGLOBIN 12.2 GM/dL (10.7-15.3); LYMPH % 33.1 % (8-40); MCH 31.6 pg (25.7-33.7); MEAN CELL VOLUME 95.7 fl (80-96); MEAN PLT VOLUME 8.8 fl (7.5-11.1); NEUT % 55.4 % (42.8-82.8); PLATELET COUNT 344 10^3/uL (134-434); RBC 3.86 M/mm3 (3.60-5.2); RDW 13.4 % (11.6-15.6); WHITE BLOOD COUNT 5.8 K/mm3 (4.0-10.0)
[2022-03-07 14:16] VITALS: TEMP 98.8
[2022-03-07 14:28] VITALS: BP 117/56; PULSE 75
== END 2022-03-07 18:48 | disposition home or self-care (01) | DRG 466 ==
LOC: JER 12:04 → JERBED 02-28 00:10 → J6S 02-28 07:03
PROVIDERS: ADMIT Internal Medicine
PROC: 0D9W30Z Drainage of Peritoneum with Drainage Device, Percutaneous Approach (ICD-10-PCS; principal; 2022-03-04)
DX: N99.89 Other postprocedural complications and disorders of genitourinary system (principal); K57.20 Diverticulitis of large intestine with perforation and abscess without bleeding; D72.829 Elevated white blood cell count, unspecified; N83.209 Unspecified ovarian cyst, unspecified side; D25.9 Leiomyoma of uterus, unspecified; N28.1 Cyst of kidney, acquired; E78.5 Hyperlipidemia, unspecified; K21.9 Gastro-esophageal reflux disease without esophagitis; R10.11 Right upper quadrant pain; Y83.9 Surgical procedure, unspecified as the cause of abnormal reaction of the patient, or of later complication, without mention of misadventure at the time of the procedure
CPT/HCPCS: 36415; 49406; 71045-TC-FY; 74176-TC; 74177-TC; 76705-TC; 80048; 80053; 81003; 82042; 82150; 82378; 82465; 82570; 82945; 83605; 83615; 83690; 83735; 83986; 84100; 84157; 84478; 84484; 84703; 85025; 85610; 86140; 86304; 87040; 87070; 87075; 87086; 87102; 87116; 87205; 87206; 87210; 88108; 88305-TC; 93005; 93010; 99285-25; C9803-CS; Q9967; U0003; U0005

== ENCOUNTER 2022-12-13 19:00 | Emergency (ER) | payer BC, OTHER ==
[2022-12-13 19:23] VITALS: BP 126/88; PULSE 78; RESP 16; TEMP 98; BMI 27.1
[2022-12-13 21:20] LABS: HEMATOCRIT 36.5 % (32.4-45.2); HEMOGLOBIN 12.6 GM/dL (10.7-15.3); MCH 32.5 pg (25.7-33.7); MCHC 34.5 g/dl (32.0-36.0); MEAN CELL VOLUME 94.3 fl (80-96); MEAN PLT VOLUME 8.6 fl (7.5-11.1); PLATELET COUNT 254 10^3/uL (134-434); RBC 3.87 M/mm3 (3.60-5.2); RDW 13.8 % (11.6-15.6)
[2022-12-13 21:42] LABS: ALBUMIN 3.8 g/dl (3.4-5.0); BLOOD UREA NITROGEN 22.8 mg/dL (7-18)
[2022-12-13 21:45] LABS: CREATININE 1.1 mg/dL (0.55-1.3)
[2022-12-13 21:46] LABS: BILIRUBIN,TOTAL 0.2 mg/dL (0.2-1); TOT PROT 7.7 g/dl (6.4-8.2)
[2022-12-13 23:01] LABS: EPI CELLS 1 /uL (0-25.1); HYALINE CASTS 0 /uL (0-3.1); URINE APPEARANCE CLEAR; URINE BILIRUBIN NEGATIVE (NEGATIVE); URINE COLOR DK YELLOW; URINE GLUCOSE (UA) NEGATIVE (NEGATIVE); URINE KETONE NEGATIVE (NEGATIVE); URINE LEUK ESTERASE NEGATIVE (NEGATIVE); URINE NITRITE POSITIVE (NEGATIVE); URINE PROTEIN NEGATIVE (NEGATIVE); URINE RBC 254 /uL (0-23.9); URINE WBC 5 /uL (0-25.8)
[2022-12-14] MEDS ORDERED: CEPHALEXIN MONOHYDRATE 500 MG CAPSULE (UD) PO ONE (00:51)
[2022-12-14] MEDS ORDERED: CEPHALEXIN MONOHYDRATE 500 MG CAPSULE (UD) ONE (01:06)
== END 2022-12-14 01:08 | disposition home or self-care (01) ==
LOC: JER 19:00
DX: N39.0 Urinary tract infection, site not specified (principal); N76.0 Acute vaginitis
CPT/HCPCS: 36415; 74176-TC; 80053; 81003; 84703; 85027; 87086; 99285-25

== ENCOUNTER 2023-01-21 13:47 | Emergency (ER) | payer BC ==
[2023-01-21 13:54] VITALS: BP 129/84; PULSE 63; RESP 18; TEMP 98; BMI 29.1
== END 2023-01-21 17:35 | disposition home or self-care (01) ==
LOC: JER 13:47
DX: K59.00 Constipation, unspecified (principal)
CPT/HCPCS: 74176-TC; 99284-25

== ENCOUNTER 2023-04-09 14:28 | Emergency (ER) | payer BC ==
[2023-04-09] MEDS ORDERED: ACETAMINOPHEN 1000 MG/100 ML BAG IVPB ONE (14:42)
[2023-04-09] MEDS ORDERED: SODIUM CHLORIDE 1,000 ML IV ONE (14:42)
[2023-04-09] MEDS ORDERED: METOCLOPRAMIDE HCL INJECTION 10 MG/2 ML VIAL IVPUSH ONE (14:42)
[2023-04-09 14:47] VITALS: TEMP 99; BMI 28.3
[2023-04-09] MEDS ORDERED: METOCLOPRAMIDE HCL INJECTION 10 MG/2 ML VIAL ONE (14:50)
[2023-04-09] MEDS ORDERED: ACETAMINOPHEN INJECTION 100 ML IVPB ONE (14:50)
[2023-04-09 15:18] LABS: HEMATOCRIT 38.8 % (32.4-45.2); HEMOGLOBIN 13.1 G/dL (10.7-15.3); MCH 32.6 pg (25.7-33.7); MCHC 33.6 g/dl (32.0-36.0); PLATELET COUNT 217.3 10^3/uL (134-434); RDW 13.8 % (11.6-15.6)
[2023-04-09 15:34] LABS: ALBUMIN 4.2 g/dl (3.4-5.0); BILIRUBIN,TOTAL 0.5 mg/dl (0.2-1); BLOOD UREA NITROGEN 18.2 mg/dl (7-18); CALCIUM 9.6 mg/dl (8.5-10.1); SGOT/AST 17.8 U/L (15-37); SGPT/ALT 15.2 U/L (7-52); TOT PROT 6.9 g/dl (6.4-8.2)
[2023-04-09 15:47] LABS: PLATELET ESTIMATE ADEQUATE
[2023-04-09 16:59] VITALS: BP 116/71; PULSE 75; RESP 18
== END 2023-04-09 17:00 | disposition home or self-care (01) ==
LOC: FER 14:28
PROC: 3E033NZ Introduction of Analgesics, Hypnotics, Sedatives into Peripheral Vein, Percutaneous Approach (ICD-10-PCS; principal; 2023-04-09)
PROC: 3E033GC Introduction of Other Therapeutic Substance into Peripheral Vein, Percutaneous Approach (ICD-10-PCS; 2023-04-09)
PROC: 3E0337Z Introduction of Electrolytic and Water Balance Substance into Peripheral Vein, Percutaneous Approach (ICD-10-PCS; 2023-04-09)
DX: R07.89 Other chest pain (principal); R11.2 Nausea with vomiting, unspecified; R05.9 Cough, unspecified; J02.9 Acute pharyngitis, unspecified; J06.9 Acute upper respiratory infection, unspecified
CPT/HCPCS: 0241U-QW; 36415; 71045-TC-FY; 80053; 84484; 85027; 87651; 93005; 99285-25

== ENCOUNTER 2023-04-29 11:35 | Emergency (ER) | payer BC ==
[2023-04-29 11:56] VITALS: BP 142/91; PULSE 77; RESP 20; TEMP 98.2; BMI 27.4
[2023-04-29 13:27] LABS: ALBUMIN 4.4 g/dl (3.4-5.0); BILIRUBIN,TOTAL 0.4 mg/dl (0.2-1); BLOOD UREA NITROGEN 19.3 mg/dl (7-18); CALCIUM 9.6 mg/dl (8.5-10.1); CREATININE 0.9 mg/dl (0.6-1.3); POTASSIUM 3.9 mmol/L (3.5-5.1); SGOT/AST 15.7 U/L (15-37); SGPT/ALT 13.3 U/L (7-52)
[2023-04-29 17:01] LABS: SYPHILIS W/ RPR CONF NON-REACTIVE (NONREACTIVE)
[2023-04-29 17:29] LABS: HIV INTERPRETATION NEGATIVE (NEGATIVE)
[2023-05-02 23:07] LABS: FIBROSIS SCORE. 0.07 (0.00-0.21); HCV ALPHA 2 MACRO CHART 197 mg/dL (110-276); NECRO.INFLAM ACT.SCORE 0.03 (0.00-0.17); NECROINFLAM. ACTIVITY GRADE A0-No activity (.)
== END 2023-04-29 13:17 | disposition home or self-care (01) ==
LOC: FER 11:35
DX: B07.9 Viral wart, unspecified (principal)
CPT/HCPCS: 36415; 80053; 82172; 82977; 83010; 83883; 84460; 84703; 86632; 86695; 86696; 86705; 86780; 87389; 87491; 87517; 87591; 99283-25

== ENCOUNTER 2023-09-13 18:23 | Emergency (ER) | payer BC ==
[2023-09-13 18:36] VITALS: BP 122/86; PULSE 80; RESP 18; TEMP 97.7; BMI 28.3
[2023-09-13] MEDS ORDERED: ACETAMINOPHEN 1000 MG/100 ML BAG IVPB ONE (19:17)
[2023-09-13] MEDS ORDERED: ACETAMINOPHEN INJECTION 100 ML IVPB ONE (19:23)
[2023-09-13 20:03] LABS: BASO % 0.8 % (0-2.0); EOS % 3.6 % (0-4.5); HEMOGLOBIN 12.4 GM/dL (10.7-15.3); MCH 31.3 pg (25.7-33.7); MCHC 33.6 g/dl (32.0-36.0); MEAN PLT VOLUME 8.8 fl (7.5-11.1); MONO % 8.9 % (3.8-10.2); NEUT % 46.7 % (42.8-82.8); PLATELET COUNT 238 10^3/uL (134-434); RBC 3.98 M/mm3 (3.60-5.2); RDW 14.1 % (11.6-15.6); WHITE BLOOD COUNT 5.5 K/mm3 (4.0-10.0)
[2023-09-13 20:12] LABS: INR 1.06 (0.83-1.09); PROTHROMBIN TIME (PATIENT) 12.3 SEC (9.7-13.0)
[2023-09-13 20:14] LABS: ACTIVATED PTT 31.8 SECONDS (25.2-36.5)
[2023-09-13 20:28] LABS: ALBUMIN 3.6 g/dl (3.4-5.0); BLOOD UREA NITROGEN 17.8 mg/dL (7-18); CALCIUM 9.2 mg/dL (8.5-10.1)
[2023-09-13 20:32] LABS: CREATININE 1.1 mg/dL (0.55-1.3)
[2023-09-13 20:33] LABS: BILIRUBIN,TOTAL 0.2 mg/dL (0.2-1); TOT PROT 6.9 g/dl (6.4-8.2)
[2023-09-13 20:36] LABS: N-TERMINAL BNP 118.2 pg/ml (5-125)
== END 2023-09-13 22:25 | disposition home or self-care (01) ==
LOC: JER 18:23
PROC: 3E033NZ Introduction of Analgesics, Hypnotics, Sedatives into Peripheral Vein, Percutaneous Approach (ICD-10-PCS; principal; 2023-09-13)
DX: R07.89 Other chest pain (principal); R51.9 Headache, unspecified; R11.0 Nausea; M54.2 Cervicalgia; H53.71 Glare sensitivity; R10.13 Epigastric pain; Z20.822 Contact with and (suspected) exposure to COVID-19
CPT/HCPCS: 0241U-QW; 36415; 70450-TC; 71045-TC-FY; 80053; 83880; 84484; 85025; 85610; 85730; 93005; 93010; 99285-25

== ENCOUNTER 2024-01-10 09:55 | Emergency (ER) | payer BC ==
[2024-01-10 10:02] VITALS: BP 108/56; PULSE 79; RESP 18; TEMP 98.4; BMI 27.4
[2024-01-10] MEDS ORDERED: MAG HYDROX/AL HYDROX/SIMETH 30 ML UNIT-DOSE CUP ONE (10:44)
[2024-01-10] MEDS ORDERED: FAMOTIDINE 20 MG/50 ML IVPB 20 MG/50 ML MG IVPB ONE (10:44)
[2024-01-10 11:10] LABS: EOS % 3.8 % (0-4.5); EPI CELLS >36 /uL (0-25.1); HEMATOCRIT 39.6 % (32.4-45.2); HEMOGLOBIN 13.2 GM/dL (10.7-15.3); HYALINE CASTS 0 /uL (0-3.1); LYMPH % 41.2 % (8-40); MCH 31.6 pg (25.7-33.7); MCHC 33.3 g/dl (32.0-36.0); MEAN CELL VOLUME 94.8 fl (80-96); MEAN PLT VOLUME 9.1 fl (7.5-11.1); MONO % 7.2 % (3.8-10.2); NEUT % 46.8 % (42.8-82.8); PLATELET COUNT 242 10^3/uL (134-434); RBC 4.17 M/mm3 (3.60-5.2); RDW 14.1 % (11.6-15.6); URINE APPEARANCE CLOUDY; URINE BACTERIA 673 /uL (0-1359); URINE BILIRUBIN NEGATIVE (NEGATIVE); URINE COLOR YELLOW; URINE GLUCOSE (UA) NEGATIVE (NEGATIVE); URINE KETONE NEGATIVE (NEGATIVE); URINE LEUK ESTERASE 2+ (NEGATIVE); URINE NITRITE NEGATIVE (NEGATIVE); URINE PROTEIN NEGATIVE (NEGATIVE); URINE UROBILINOGEN 0.2 mg/dL (0.2-1.0); URINE WBC 45 /uL (0-25.8)
[2024-01-10 11:23] LABS: URINE RBC 140.7 /uL (0-23.9)
[2024-01-10 11:36] LABS: POTASSIUM 4.3 mmol/L (3.5-5.1)
[2024-01-10 11:38] LABS: CALCIUM 9.4 mg/dL (8.5-10.1)
[2024-01-10 11:39] LABS: ALBUMIN 3.8 g/dl (3.4-5.0); MAGNESIUM 2.4 mg/dL (1.8-2.4)
[2024-01-10 11:42] LABS: CREATININE 0.9 mg/dL (0.55-1.3)
[2024-01-10 11:43] LABS: BILIRUBIN,TOTAL 0.6 mg/dL (0.2-1); TOT PROT 7.8 g/dl (6.4-8.2)
[2024-01-10] MEDS: FAMOTIDINE 20 MG/50 ML IVPB 20 MG/50 ML MG IVPB ONE (12:00)
[2024-01-10] MEDS: SODIUM CHLORIDE 1,000 ML IV STA (12:00)
[2024-01-10] MEDS: MAG HYDROX/AL HYDROX/SIMETH 30 ML UNIT-DOSE CUP PO ONE (12:00)
[2024-01-10] MEDS ORDERED: ONDANSETRON *ODT* 4 MG TABLET ONE (14:08)
[2024-01-10] MEDS: ONDANSETRON *ODT* 4 MG TABLET SL ONE (14:16)
[2024-01-10] MEDS ORDERED: SUCRALFATE 1 GM TABLET (FP) ONE (14:21)
[2024-01-10] MEDS: SUCRALFATE 1 GM TABLET (FP) PO ONE (14:26)
== END 2024-01-10 14:27 | disposition home or self-care (01) ==
LOC: JER 09:55
PROC: 3E033GC Introduction of Other Therapeutic Substance into Peripheral Vein, Percutaneous Approach (ICD-10-PCS; principal; 2024-01-10)
DX: R10.13 Epigastric pain (principal); R42 Dizziness and giddiness
CPT/HCPCS: 36415; 76705-TC; 80053; 81003; 83690; 83735; 84484; 85025; 93005; 93010; 99285-25; Q0162

== ENCOUNTER 2025-08-04 10:22 | Emergency (ER) | payer BC ==
[2025-08-04 10:31] VITALS: BP 124/79; PULSE 82; RESP 18; TEMP 98.1; BMI 27.9
[2025-08-04 11:38] LABS: ABSOLUTE IMMATURE GRANULOCYTES 0.03 x10^3/uL (0.0-0.031); BASOPHILS # 0.06 x10^3/uL (0.01-0.08); EOSINOPHIL % 2.5 % (0.7-5.8); EOSINOPHILS # 0.17 x10^3/uL (0.04-0.36); MCHC 33.1 g/dl (32.2-35.5); MEAN CELL VOLUME 96.3 fl (79.4-94.8); MEAN PLT VOLUME 10.2 fl (9.4-12.3); MONOCYTE # 0.49 x10^3/uL (0.24-0.86); MONOCYTE % 7.3 % (4.7-12.5); RDW 13.6 % (12.3-16.6)
[2025-08-04 11:42] LABS: EPI CELLS 2 /uL (0-25.1); HYALINE CASTS 0 /uL (0-3.1); URINE APPEARANCE CLEAR; URINE BACTERIA 36 /uL (0-1359); URINE BILIRUBIN NEGATIVE (NEGATIVE); URINE COLOR YELLOW; URINE GLUCOSE (UA) NEGATIVE (NEGATIVE); URINE KETONE NEGATIVE (NEGATIVE); URINE LEUK ESTERASE NEGATIVE (NEGATIVE); URINE NITRITE NEGATIVE (NEGATIVE); URINE PROTEIN NEGATIVE (NEGATIVE); URINE RBC 61 /uL (0-23.9); URINE UROBILINOGEN 0.2 mg/dL (0.2-1.0); URINE WBC 5 /uL (0-25.8)
[2025-08-04 11:45] LABS: INR 1.11 (0.83-1.09); PROTHROMBIN TIME (PATIENT) 12.1 SEC (9.7-13.0)
[2025-08-04 11:47] LABS: ACTIVATED PTT 29.9 SECONDS (25.2-36.5)
[2025-08-04] MEDS ORDERED: ACETAMINOPHEN INJECTION 100 ML ONE (11:55)
[2025-08-04] MEDS ORDERED: ACETAMINOPHEN 325 MG TABLET (FP) ONE (11:56)
[2025-08-04 12:04] LABS: GLUCOSE,RANDOM 95.0 mg/dL (74-106); TOT PROT 6.9 g/dl (6.4-8.2)
[2025-08-04 12:05] LABS: CO2 24.0 mmol/L (21-32)
[2025-08-04] MEDS ORDERED: FAMOTIDINE 20 MG/50 ML IVPB 20 MG/50 ML MG IVPB ONE (12:05)
[2025-08-04 12:07] LABS: ALK PHOS 84.0 U/L (40-150)
[2025-08-04 12:09] LABS: CREATININE 0.79 mg/dL (0.55-1.3); SGOT/AST 24.0 U/L (5-34); SGPT/ALT 20.0 U/L (0-55)
[2025-08-04] MEDS: ACETAMINOPHEN 1000 MG/100 ML BAG IVPB ONE (12:27)
[2025-08-04] MEDS: FAMOTIDINE 20 MG/50 ML IVPB 20 MG/50 ML MG IVPB ONE (12:28)
[2025-08-04 12:31] LABS: HIV INTERPRETATION NEGATIVE (NEGATIVE)
[2025-08-04 12:32] LABS: HCV DIAGNOSTIC IN-HOUSE W/RFLX NON-REACTIVE (NONREACTIVE)
== END 2025-08-04 14:05 | disposition home or self-care (01) ==
LOC: JER 10:22
PROC: 3E033GC Introduction of Other Therapeutic Substance into Peripheral Vein, Percutaneous Approach (ICD-10-PCS; principal; 2025-08-04)
PROC: 3E033NZ Introduction of Analgesics, Hypnotics, Sedatives into Peripheral Vein, Percutaneous Approach (ICD-10-PCS; 2025-08-04)
DX: N20.0 Calculus of kidney (principal); R30.9 Painful micturition, unspecified; R10.11 Right upper quadrant pain; R10.13 Epigastric pain; R39.11 Hesitancy of micturition
CPT/HCPCS: 36415; 74176-TC; 76705-TC; 80053; 81003; 83690; 85025; 85610; 85730; 86803; 86850; 86900; 86901; 87389; 96365; 96375; 99285-25